=== PATIENT | female | born 1965 | race Caucasian/White ===

== ENCOUNTER 2017-06-12 20:28 | Emergency (ER) | payer MEDICAID ==
[~2017-06-12] VITALS: Ht 170.2 cm; Wt 100.2 kg
[~2017-06-12 20:28] MED LIST: ALBU25PO2 PO; ATEN-103 PO; FURO-92 PO; HYDR-3151 PO; HYDR-882 PO; HYDR1TAB14 PO; LORA2TAB99 PO; METH40TA3 PO; POTA10TA57 PO; TIOT18CA INH; [UNRECOGNIZED DRUG - CODE] PO
[2017-06-12] MEDS ORDERED: SODIUM CHLORIDE 0.9% 1,000ML IVBOLUS ONE (21:00)
[2017-06-12 21:40] LABS: HEMATOCRIT 40.8 % (34.6-47.8); HEMOGLOBIN 13.7 g/dL (11.7-16.4); WHITE BLOOD COUNT 9.9 x10^3/uL (3.4-10)
[2017-06-12 21:53] LABS: BLOOD UREA NITROGEN 18 mg/dL (7-18)
[2017-06-12] MEDS ORDERED: ONDANSETRON ODT 4 MG ONE (21:54)
[2017-06-12] MEDS ORDERED: OXYcodone/APAP 5/325MG TABLET ONE (21:54)
[2017-06-12 21:58] LABS: ASPARTATE AMINO TRANSFERASE 14 U/L (15-37); IS PT STATUS REG ER OR PRE ER? YES
[2017-06-12] MEDS ORDERED: ONDANSETRON ODT 4 MG PO ONE (22:00)
[2017-06-12] MEDS ORDERED: OXYcodone/APAP 5/325MG TABLET PO ONE (22:00)
[2017-06-12 22:07] LABS: PATH.CAST-FLAG NOT PRESENT; SPERM-FLAG NOT PRESENT; SRC-FLAG NOT PRESENT; XTAL-FLAG NOT PRESENT; YLC-FLAG NOT PRESENT
[2017-06-12 22:34] VITALS: BP 126/67
== END 2017-06-12 22:36 | disposition home or self-care (01) ==
LOC: ED 22:11
DX: N30.01 Acute cystitis with hematuria (principal); H10.33 Unspecified acute conjunctivitis, bilateral; R60.0 Localized edema; J20.8 Acute bronchitis due to other specified organisms; B34.9 Viral infection, unspecified; J44.9 Chronic obstructive pulmonary disease, unspecified; I50.9 Heart failure, unspecified; I11.0 Hypertensive heart disease with heart failure; I25.2 Old myocardial infarction; I25.10 Atherosclerotic heart disease of native coronary artery without angina pectoris; G89.29 Other chronic pain
CPT/HCPCS: 36415; 71010; 80053; 81001; 84484; 85025; 87086; 93005; 93971; 99285; Q0162

== ENCOUNTER 2017-09-23 12:46 | Emergency (ER) | payer MEDICAID ==
[~2017-09-23] VITALS: Ht 170.2 cm; Wt 98.5 kg
[2017-09-23] MEDS ORDERED: ONDANSETRON 2MG/ML, 2ML ONE (13:19)
[2017-09-23] MEDS ORDERED: methylPREDNISolone SOD SUCC 125 MG/2 ML ONE (13:19)
[2017-09-23] MEDS ORDERED: ONDANSETRON 2MG/ML, 2ML IVP ONE (13:30)
[2017-09-23] MEDS ORDERED: SODIUM CHLORIDE 0.9% 1,000ML IVBOLUS ONE (13:30)
[2017-09-23] MEDS ORDERED: ALBUTEROL SULFATE 2.5 MG/3 ML NPPB ONE ×2 (13:30→15:00)
[2017-09-23] MEDS ORDERED: methylPREDNISolone SOD SUCC 125 MG/2 ML IVP ONE (13:30)
[2017-09-23] MEDS ORDERED: SODIUM CHLORIDE FLUSH 10ML SYR IVF ONE (13:30)
[2017-09-23] MEDS ORDERED: ALBUTEROL/IPRATROPIUM 2.5MG/0.5MG, 3 ML NPPB ONE (13:30)
[2017-09-23] MEDS ORDERED: ALBUTEROL SULFATE 2.5MG/0.5ML ONE (13:42)
[2017-09-23] MEDS ORDERED: ALBUTEROL/IPRATROPIUM 2.5MG/0.5MG, 3 ML ONE (13:42)
[2017-09-23 13:44] LABS: RAPID INFLUENZA A Negative (Negative); RAPID INFLUENZA B Negative (Negative)
[2017-09-23] MEDS ORDERED: HYDROcodone/APAP 5/325 TABLET ONE (13:49)
[2017-09-23] MEDS ORDERED: HYDROcodone/APAP 5/325 TABLET PO ONE (14:00)
[2017-09-23 14:04] LABS: HEMATOCRIT 40.6 % (34.6-47.8); HEMOGLOBIN 13.8 g/dL (11.7-16.4); WHITE BLOOD COUNT 7.5 x10^3/uL (3.4-10)
[2017-09-23 14:15] LABS: ASPARTATE AMINO TRANSFERASE 15 U/L (15-37); BLOOD UREA NITROGEN 8 mg/dL (7-18)
[2017-09-23] MEDS ORDERED: ONDANSETRON ODT 4 MG ONE (14:39)
[2017-09-23 14:54] VITALS: BP 129/89
[2017-09-23] MEDS ORDERED: ONDANSETRON 4 MG TABLET PO ONE (15:00)
== END 2017-09-23 14:56 | disposition home or self-care (01) ==
LOC: ED 14:50
DX: J44.1 Chronic obstructive pulmonary disease with (acute) exacerbation (principal); J20.8 Acute bronchitis due to other specified organisms; B34.9 Viral infection, unspecified; I10 Essential (primary) hypertension; I25.10 Atherosclerotic heart disease of native coronary artery without angina pectoris; I25.2 Old myocardial infarction; M79.7 Fibromyalgia; Z90.49 Acquired absence of other specified parts of digestive tract; Z99.81 Dependence on supplemental oxygen
CPT/HCPCS: 36415; 71020; 80053; 85025; 85610; 85730; 87400; 93005; 94640; 99285; J7512; Q0162; J7613; J7620

== ENCOUNTER 2017-10-02 10:52 | Emergency (ER) | payer MEDICAID ==
[~2017-10-02] VITALS: Ht 170.2 cm; Wt 92.6 kg
[2017-10-02] MEDS ORDERED: SODIUM CHLORIDE 0.9% 1,000ML IVBOLUS ONE (12:00)
[2017-10-02] MEDS ORDERED: PROMETHAZINE 25 MG/ML, 1ML IM ONE (12:00)
[2017-10-02] MEDS ORDERED: FAMOTIDINE 20 MG/2 ML IVP ONE (12:00)
[2017-10-02] MEDS ORDERED: SODIUM CHLORIDE FLUSH 10ML SYR IVF ONE (12:00)
[2017-10-02 12:19] LABS: HEMATOCRIT 44.1 % (34.6-47.8); HEMOGLOBIN 14.7 g/dL (11.7-16.4); WHITE BLOOD COUNT 11.5 x10^3/uL (3.4-10)
[2017-10-02 12:34] LABS: ASPARTATE AMINO TRANSFERASE 20 U/L (15-37); BLOOD UREA NITROGEN 13 mg/dL (7-18)
[2017-10-02] MEDS ORDERED: MORPHINE SULFATE 4 MG/ML, 1ML ONE ×3 (12:34→14:36)
[2017-10-02] MEDS ORDERED: FAMOTIDINE 20 MG/2 ML ONE (12:34)
[2017-10-02] MEDS ORDERED: PROMETHAZINE 25 MG/ML, 1ML ONE (12:34)
[2017-10-02 12:37] LABS: IS PT STATUS REG ER OR PRE ER? YES
[2017-10-02] MEDS: MORPHINE SULFATE 4 MG/ML, 1ML IVPush PRN ×2 (12:38→13:16)
[2017-10-02 13:22] LABS: HCG UR LOT HCG706132
[2017-10-02 13:29] LABS: PATH.CAST-FLAG NOT PRESENT; SPERM-FLAG NOT PRESENT; SRC-FLAG NOT PRESENT; XTAL-FLAG NOT PRESENT; YLC-FLAG NOT PRESENT
[2017-10-02 13:35] LABS: HCG UR OBC PASS
[2017-10-02] MEDS ORDERED: ONDANSETRON 2MG/ML, 2ML IVPush ONE (14:30)
[2017-10-02] MEDS ORDERED: MORPHINE SULFATE 4 MG/ML, 1ML IVPush ONE (14:30)
[2017-10-02] MEDS ORDERED: ONDANSETRON 2MG/ML, 2ML ONE (14:36)
[2017-10-02 15:00] VITALS: BP 106/52
== END 2017-10-02 15:03 | disposition home or self-care (01) ==
LOC: ED 14:57
DX: R11.2 Nausea with vomiting, unspecified (principal); R51 Headache; I25.2 Old myocardial infarction; I11.0 Hypertensive heart disease with heart failure; I50.9 Heart failure, unspecified; F41.9 Anxiety disorder, unspecified; I25.10 Atherosclerotic heart disease of native coronary artery without angina pectoris; J44.9 Chronic obstructive pulmonary disease, unspecified; Z90.49 Acquired absence of other specified parts of digestive tract; Z86.718 Personal history of other venous thrombosis and embolism; Z91.041 Radiographic dye allergy status; Z91.013 Allergy to seafood; Z88.8 Allergy status to other drugs, medicaments and biological substances
CPT/HCPCS: 36415; 71010; 74176; 80053; 81001; 81025; 83690; 84484; 85025; 87086; 93005; 96361; 96372; 96374; 96375; 96376; 99285; J2405; J2550; J7030; S0028

== ENCOUNTER 2018-12-29 07:53 | Inpatient (IN) | payer MEDICAID, OTHER ==
[~2018-12-29] VITALS: Ht 170.2 cm; Wt 92.9 kg
[~2018-12-29 07:53] MED LIST changes: +HYDR-3653 PO; -HYDR-882 PO; +POTA25TA4 PO
--- NOTE | 2018-12-29 07:56 | NUR ---
Pt BIB [facility]-c/o midline CP radiating down L arm starting this morning. Pain described as sharp, 04/23. Pt positioned for comfort in bed with warm blankets, continuous oxygen, heart and BP monitors applied, all safety measures observed. Pt is in custody of [facility], deputy remains at bedside.
[2018-12-29] MEDS ORDERED: LORazepam 2 MG/ML, 1ML ONE (08:10)
--- NOTE | 2018-12-29 08:12 | NUR ---
Pt medicated per MAR, denies other needs.
[2018-12-29] MEDS ORDERED: LORazepam 2 MG/ML, 1ML IVPush ONE (08:30)
[2018-12-29] MEDS ORDERED: SODIUM CHLORIDE FLUSH 10ML SYR IVF ONE (08:30)
--- NOTE | 2018-12-29 08:38 | NUR ---
Pt requesting pain medication. Dr. Whittaker made aware.
--- NOTE | 2018-12-29 08:52 | NUR ---
Lab at bedside to collect blood.
[2018-12-29] MEDS ORDERED: MORPHINE SULFATE 4 MG/ML, 1ML ONE (08:56)
[2018-12-29] MEDS ORDERED: MORPHINE SULFATE 4 MG/ML, 1ML IVPush PRN (09:00)
--- NOTE | 2018-12-29 09:07 | NUR ---
Pt states pain 8/10, requesting pain medication. Discussed with Dr. Whittaker, orders received for Morphine IVP. Pt medicated per order, ambulatory to bathroom without difficulty accompanied by deputy.
[2018-12-29 09:20] LABS: BASOPHILS # (AUTO) 0.02 x10^3/uL (0-0.1); BASOPHILS % (AUTO) 0 % (0-1); EOSINOPHILS # (AUTO) 0.02 x10^3/uL (0-0.4); EOSINOPHILS % (AUTO) 0 % (1-7); LYMPHOCYTES # (AUTO) 1.77 x10^3/uL (1-3.4); LYMPHOCYTES % (AUTO) 23 % (22-44); MD NO; MEAN CORPUSCULAR HEMOGLOBIN 29.8 pg (27.0-34.8); MEAN CORPUSCULAR VOLUME 90.4 fL (80-100); MEAN PLATELET VOLUME 7.5 fL (7.4-10.4); MONOCYTES # (AUTO) 0.35 x10^3/uL (0.2-0.8); MONOCYTES % (AUTO) 5 % (2-9); NEUTROPHILS # (AUTO) 5.68 x10^3/uL (1.8-6.8); NEUTROPHILS % (AUTO) 73 % (42-75); PLATELET COUNT 278 x10^3/uL (130-400); RED BLOOD COUNT 4.85 x10^6/uL (3.82-5.3); RED CELL DISTRIBUTION WIDTH 13.1 % (9.6-15.2)
[2018-12-29 09:22] LABS: ALANINE AMINOTRANSFERASE 26 U/L (12-78); ALBUMIN 3.7 g/dL (3.4-5.0); ANION GAP 4 mmol/L (5-15); CALCIUM 9.1 mg/dL (8.5-10.1); CHLORIDE 110 mmol/L (98-107); CREATININE 0.69 mg/dL (0.55-1.02)
[2018-12-29 09:26] LABS: ALKALINE PHOSPHATASE 88 U/L (45-117); BILIRUBIN,TOTAL 0.4 mg/dL (0.2-1.0); TOTAL PROTEIN 7.3 g/dL (6.4-8.2); TROPONIN I < 0.015 ng/mL (0.000-0.045)
--- NOTE | 2018-12-29 09:30 | NUR ---
Pt resting in bed with eyes closed, resp even and unlabored, NADN.
--- NOTE | 2018-12-29 09:59 | NUR ---
Lab at bedside to collect blood cultures x2.
[2018-12-29] MEDS ORDERED: AZITHROMYCIN 500 MG in SODIUM CHLORIDE 0.9% 250 ML IVPB ONE (10:00)
[2018-12-29] MEDS ORDERED: SODIUM CHLORIDE FLUSH 10ML SYR IVF PRN (10:00)
[2018-12-29] MEDS ORDERED: CEFTRIAXONE PMX 1GM/50ML 50 ML IVPB ONE (10:00)
[2018-12-29] MEDS ORDERED: CEFTRIAXONE PMX 1GM/50ML 50 ML ONE (10:05)
--- NOTE | 2018-12-29 10:08 | NUR ---
IV abx initiated per order. Pt resting in bed, NADN, denies needs.
[2018-12-29] MEDS ORDERED: BISACODYL 10 MG SUPP PR PRN (11:00)
[2018-12-29] MEDS ORDERED: hydrALAzine 20 MG/ML, 1ML IVPush PRN (11:00)
[2018-12-29] MEDS ORDERED: POLYETHYLENE GLYCOL 17 GM PACKET PO PRN (11:00)
[2018-12-29] MEDS: CEFTRIAXONE PMX 1GM/50ML 50 ML IV SCH ×2 (11:00→23:09)
[2018-12-29] MEDS ORDERED: ACETAMINOPHEN 325 MG TABLET PO PRN (11:00)
[2018-12-29] MEDS ORDERED: ALBUTEROL PO SCH (11:00)
[2018-12-29] MEDS ORDERED: TEMAZEPAM 15 MG CAPSULE PO PRN (11:00)
[2018-12-29] MEDS ORDERED: NICOTINE 21 MG/24 HR PATCH.TD24 ONE (11:55)
[2018-12-29] MEDS ORDERED: HEPARIN 5,000 UNITS/ML, 1ML ONE (11:55)
[2018-12-29] MEDS ORDERED: methylPREDNISolone SOD SUCC 125 MG/2 ML ONE (11:56)
[2018-12-29] MEDS: methylPREDNISolone SOD SUCC 125 MG/2 ML IVPush SCH ×3 (12:02→23:09)
[2018-12-29] MEDS: NICOTINE 21 MG/24 HR PATCH.TD24 TD SCH (12:03)
[2018-12-29] MEDS: HEPARIN 5,000 UNITS/ML, 1ML SQ SCH ×2 (12:03→19:59)
[2018-12-29 12:23] LABS: THYROID STIMULATING HORMONE 0.454 mIU/L (0.358-3.740)
--- NOTE | 2018-12-29 12:30 | NUR ---
Pt resting in bed with eyes closed, resp even and unlabored, NADN.
--- NOTE | 2018-12-29 12:48 | NUR ---
Report called to Kamilla LUI on card tele. Floor ready for pt transport.
[2018-12-29] MEDS ORDERED: PROMETHAZINE 25 MG/ML, 1ML ONE (13:19)
[2018-12-29] MEDS ORDERED: PROMETHAZINE 25 MG/ML, 1ML IM PRN (13:30)
[2018-12-29] MEDS ORDERED: GUAIFENESIN/COD200MG-20MG/10ML LIQUID PO PRN (13:30)
[2018-12-29] MEDS ORDERED: ALBUTEROL SULFATE 2.5 MG/3 ML HHN PRN (14:00)
[2018-12-29 14:05] VITALS: BP 114/64
[2018-12-29 14:28] LABS: HEMOGLOBIN A1C 5.9 % (4.2-6.3)
[2018-12-29] MEDS: HYDROcodone/APAP 5/325 TABLET PO PRN ×2 (14:55→19:59)
[2018-12-29] MEDS: IPRATROPIUM 0.5 MG/2.5 ML INHA NPPB SCH ×2 (15:30→20:47)
[2018-12-29 16:14] LABS: TROPONIN I < 0.015 ng/mL (0.000-0.045)
[2018-12-29] MEDS ORDERED: RANI150T23 PO (17:20)
[2018-12-29] MEDS: FAMOTIDINE 20 MG TABLET PO SCH (19:59)
[2018-12-29 20:06] VITALS: BP 131/79
[2018-12-29 21:33] LABS: TROPONIN I < 0.015 ng/mL (0.000-0.045)
[2018-12-30] MEDS: HYDROcodone/APAP 5/325 TABLET PO PRN ×6 (02:22→21:44)
[2018-12-30] MEDS: HEPARIN 5,000 UNITS/ML, 1ML SQ SCH ×3 (02:22→21:45)
[2018-12-30 02:24] VITALS: BP 119/71
[2018-12-30] MEDS: IPRATROPIUM 0.5 MG/2.5 ML INHA NPPB SCH ×4 (03:53→20:25)
[2018-12-30] MEDS: methylPREDNISolone SOD SUCC 125 MG/2 ML IVPush SCH ×4 (05:25→22:58)
[2018-12-30] MEDS: PROMETHAZINE 25 MG/ML, 1ML IM PRN (06:15)
[2018-12-30 06:52] LABS: CHOL/HDL RATIO 6.2; LDL/HDL RATIO 4.7 (0.5-3.0)
[2018-12-30 07:11] VITALS: BP 111/87
[2018-12-30] MEDS: ASPIRIN 81 MG TABLET CHEW PO SCH (08:32)
[2018-12-30] MEDS: FAMOTIDINE 20 MG TABLET PO SCH ×2 (08:32→21:45)
[2018-12-30] MEDS: FUROSEMIDE 40 MG TABLET PO SCH (08:32)
[2018-12-30] MEDS: ATENOLOL 25 MG TABLET PO SCH (08:32)
[2018-12-30] MEDS: K-LYTE 25 MEQ TABLET.EFF PO SCH (08:33)
[2018-12-30] MEDS: METHADONE INTENSOL 10 MG/ML ORAL CONC PO SCH (08:54)
[2018-12-30] MEDS ORDERED: ASPIRIN PO SCH (09:00)
[2018-12-30] MEDS ORDERED: METHADONE 40 MG TABLET.SOL PO SCH ×2 (09:00)
[2018-12-30] MEDS ORDERED: REGADENOSON 0.4 MG/5 ML SYRINGE ONE (09:42)
[2018-12-30] MEDS: DOCUSATE 100 MG CAPSULE PO PRN ×2 (11:28→22:58)
[2018-12-30] MEDS: CEFTRIAXONE PMX 1GM/50ML 50 ML IV SCH ×2 (11:28→22:58)
[2018-12-30] MEDS: NICOTINE 21 MG/24 HR PATCH.TD24 TD SCH (11:28)
[2018-12-30 12:20] VITALS: BP 102/59
[2018-12-30 19:59] VITALS: BP 100/63
[2018-12-31 01:34] VITALS: BP 106/63
[2018-12-31] MEDS: IPRATROPIUM 0.5 MG/2.5 ML INHA NPPB SCH ×2 (03:53→07:15)
[2018-12-31] MEDS: HYDROcodone/APAP 5/325 TABLET PO PRN ×4 (04:25→16:25)
[2018-12-31] MEDS: methylPREDNISolone SOD SUCC 125 MG/2 ML IVPush SCH ×2 (05:24→11:59)
[2018-12-31] MEDS: HEPARIN 5,000 UNITS/ML, 1ML SQ SCH ×2 (05:25→13:30)
[2018-12-31 05:58] LABS: BASOPHILS # (AUTO) 0.03 x10^3/uL (0-0.1); BASOPHILS % (AUTO) 0 % (0-1); EOSINOPHILS % (AUTO) 0 % (1-7); LYMPHOCYTES # (AUTO) 1.29 x10^3/uL (1-3.4); LYMPHOCYTES % (AUTO) 9 % (22-44); MD NO; MEAN CORPUSCULAR HEMOGLOBIN 30.3 pg (27.0-34.8); MEAN CORPUSCULAR HGB CONC 33.4 g/dL (32.4-35.8); MEAN CORPUSCULAR VOLUME 90.9 fL (80-100); MONOCYTES # (AUTO) 0.33 x10^3/uL (0.2-0.8); MONOCYTES % (AUTO) 2 % (2-9); NEUTROPHILS # (AUTO) 13.43 x10^3/uL (1.8-6.8); NEUTROPHILS % (AUTO) 89 % (42-75); PLATELET COUNT 245 x10^3/uL (130-400); RED BLOOD COUNT 4.54 x10^6/uL (3.82-5.3); RED CELL DISTRIBUTION WIDTH 13.6 % (9.6-15.2)
[2018-12-31 06:07] LABS: ANION GAP 8 mmol/L (5-15); CHLORIDE 108 mmol/L (98-107); CREATININE 0.94 mg/dL (0.55-1.02)
[2018-12-31 06:52] VITALS: BP 130/74
[2018-12-31] MEDS ORDERED: ALBUTEROL/IPRATROPIUM 2.5MG/0.5MG, 3 ML ONE (07:11)
[2018-12-31] MEDS: ATENOLOL 25 MG TABLET PO SCH (08:20)
[2018-12-31] MEDS: ASPIRIN 81 MG TABLET CHEW PO SCH (08:20)
[2018-12-31] MEDS: FAMOTIDINE 20 MG TABLET PO SCH (08:20)
[2018-12-31] MEDS: FUROSEMIDE 40 MG TABLET PO SCH (08:20)
[2018-12-31] MEDS: METHADONE INTENSOL 10 MG/ML ORAL CONC PO SCH (08:45)
[2018-12-31] MEDS: DOCUSATE 100 MG CAPSULE PO PRN (08:53)
[2018-12-31] MEDS: PROMETHAZINE 25 MG/ML, 1ML IM PRN (08:56)
[2018-12-31] MEDS: NICOTINE 21 MG/24 HR PATCH.TD24 TD SCH (11:00)
[2018-12-31] MEDS: K-LYTE 25 MEQ TABLET.EFF PO SCH (11:52)
[2018-12-31] MEDS: CEFTRIAXONE PMX 1GM/50ML 50 ML IV SCH (11:53)
[2018-12-31 12:48] VITALS: BP 105/68
[2018-12-31] MEDS ORDERED: AMOX1TAB64 PO (14:08)
[2018-12-31] MEDS ORDERED: METH4TAB2 PO (14:08)
== END 2018-12-31 17:16 | DRG 190 ==
LOC: ED 09:23 → EDIP 10:08 → 5SO 13:15 → 3NE 12-30 17:57
PROVIDERS: ADMIT Internal Medicine; ATTEND Internal Medicine
DX: J44.1 Chronic obstructive pulmonary disease with (acute) exacerbation (principal); J15.9 Unspecified bacterial pneumonia; I25.110 Atherosclerotic heart disease of native coronary artery with unstable angina pectoris; J44.0 Chronic obstructive pulmonary disease with (acute) lower respiratory infection; F17.200 Nicotine dependence, unspecified, uncomplicated; F41.1 Generalized anxiety disorder; G50.0 Trigeminal neuralgia; G89.29 Other chronic pain; I11.0 Hypertensive heart disease with heart failure; I25.2 Old myocardial infarction; I50.9 Heart failure, unspecified; Z88.7 Allergy status to serum and vaccine; Z88.8 Allergy status to other drugs, medicaments and biological substances; Z88.3 Allergy status to other anti-infective agents; Z91.013 Allergy to seafood; M79.7 Fibromyalgia; Z86.718 Personal history of other venous thrombosis and embolism; Z87.11 Personal history of peptic ulcer disease; Z95.5 Presence of coronary angioplasty implant and graft
CPT/HCPCS: 36415; 99285; J7613; J7644; 71045; 78452; 80048; 80053; 80061; 83036; 83605; 83735; 84100; 84439; 84443; 84484; 85025; 87040; 93005; 93017; 93306; 93970; 94640; 96365; 96375; G0378; J0456; J0696; J1644; J2550; J2785; A9502; C9898; J2060; J2930; J7050

== ENCOUNTER 2019-01-04 16:14 | Emergency (ER) | payer MEDICAID, OTHER ==
[~2019-01-04] VITALS: Ht 170.2 cm; Wt 92.0 kg
[~2019-01-04 16:14] MED LIST changes: +AMOX1TAB64 PO; +METH4TAB2 PO; +RANI150T23 PO
[2019-01-04 16:19] VITALS: BP 118/76
[2019-01-04] MEDS ORDERED: ONDANSETRON ODT 4 MG ONE (16:23)
[2019-01-04] MEDS ORDERED: ONDANSETRON ODT 4 MG PO ONE (16:30)
[2019-01-04] MEDS ORDERED: SODIUM CHLORIDE FLUSH 10ML SYR IVF ONE (16:30)
[2019-01-04] MEDS ORDERED: ALBUTEROL/IPRATROPIUM 2.5MG/0.5MG, 3 ML NPPB ONE (16:30)
[2019-01-04] MEDS ORDERED: PLEASE ENTER HEIGHT AND WEIGHT MC SCH (16:30)
[2019-01-04 17:06] LABS: ALANINE AMINOTRANSFERASE 88 U/L (12-78); ALBUMIN 3.9 g/dL (3.4-5.0); ANION GAP 7 mmol/L (5-15); CALCIUM 8.6 mg/dL (8.5-10.1); CHLORIDE 105 mmol/L (98-107); CREATININE 1.03 mg/dL (0.55-1.02)
[2019-01-04 17:11] LABS: ALKALINE PHOSPHATASE 75 U/L (45-117); BILIRUBIN,TOTAL 0.5 mg/dL (0.2-1.0); TOTAL PROTEIN 7.1 g/dL (6.4-8.2); TROPONIN I < 0.015 ng/mL (0.000-0.045)
[2019-01-04 17:38] LABS: MEAN CORPUSCULAR HEMOGLOBIN 30.1 pg (27.0-34.8); MEAN CORPUSCULAR HGB CONC 33.2 g/dL (32.4-35.8); MEAN CORPUSCULAR VOLUME 90.8 fL (80-100); MEAN PLATELET VOLUME 8.1 fL (7.4-10.4); PLATELET COUNT 279 x10^3/uL (130-400); RED BLOOD COUNT 5.27 x10^6/uL (3.82-5.3); RED CELL DISTRIBUTION WIDTH 13.4 % (9.6-15.2)
--- NOTE | 2019-01-04 18:13 | NUR ---
PT TO ROOM FROM LOBBY VIA WHEELCHAIR
[2019-01-04] MEDS ORDERED: ALBUTEROL/IPRATROPIUM 2.5MG/0.5MG, 3 ML ONE (18:29)
[2019-01-04 19:06] LABS: BASOPHILS # (AUTO) 0.05 x10^3/uL (0-0.1); BASOPHILS % (AUTO) 0 % (0-1); EOSINOPHILS # (AUTO) 0.28 x10^3/uL (0-0.4); EOSINOPHILS % (AUTO) 2 % (1-7); LYMPHOCYTES # (AUTO) 6.49 x10^3/uL (1-3.4); LYMPHOCYTES % (AUTO) 37 % (22-44); MD SCAN; MONOCYTES # (AUTO) 0.98 x10^3/uL (0.2-0.8); MONOCYTES % (AUTO) 6 % (2-9); NEUTROPHILS # (AUTO) 9.75 x10^3/uL (1.8-6.8); NEUTROPHILS % (AUTO) 56 % (42-75)
--- NOTE | 2019-01-04 19:17 | NUR ---
received report from hamlet larose rn. pt seen by dr. ruiz. pt to get IV, meds, labs and cta.
[2019-01-04] MEDS ORDERED: KETOROLAC 30 MG/1 ML ONE (19:19)
[2019-01-04] MEDS ORDERED: DIPHENHYDRAMINE 50 MG/ML, 1ML ONE (19:19)
[2019-01-04] MEDS ORDERED: methylPREDNISolone SOD SUCC 125 MG/2 ML ONE (19:19)
[2019-01-04] MEDS ORDERED: PROMETHAZINE 25 MG/ML, 1ML ONE (19:19)
[2019-01-04] MEDS ORDERED: PROMETHAZINE 25 MG/ML, 1ML IM ONE (19:30)
[2019-01-04] MEDS ORDERED: methylPREDNISolone SOD SUCC 125 MG/2 ML IVPush SCH (19:30)
[2019-01-04] MEDS ORDERED: DIPHENHYDRAMINE 50 MG/ML, 1ML IVPush ONE (19:30)
[2019-01-04] MEDS ORDERED: KETOROLAC 30 MG/1 ML IVPush ONE (19:30)
--- NOTE | 2019-01-04 19:37 | NUR ---
DR. ROSARIO AT BEDSIDE. PT MEDICATED ORDERED. PT BEGAN TO BECOME IRATE AFTER PHENERGAN SHOT STATING "I'M NOT GETTING NOTHING FOR MY PAIN AND I HAVE BEEN HERE FOR FOUR HOURS. I WANT TO GO." DR. ROSARIO WAS MADE AWARE.
--- NOTE | 2019-01-04 19:55 | NUR ---
PT TO GET MORPHINE PRIOR TO CT. PT REFUSING CT UNTIL SHE GETS PAIN MED. WAITING FOR ORDER FROM FROM DR. ROSARIO FOR PAIN MED.
[2019-01-04] MEDS ORDERED: MORPHINE SULFATE 4 MG/ML, 1ML ONE (19:57)
[2019-01-04] MEDS ORDERED: MORPHINE SULFATE 4 MG/ML, 1ML IVPush PRN (20:00)
--- NOTE | 2019-01-04 20:00 | NUR ---
PT MEDICATED FOR PAIN. PT TO CT.
[2019-01-04 20:14] LABS: INTERNATIONAL NORMALIZED RATIO 0.96 (0.93-1.1); PROTHROMBIN TIME 10.1 Seconds (9.6-11.5)
--- NOTE | 2019-01-04 20:21 | NUR ---
PT DEMANDING MORE PAIN MEDS PRIOR TO US. DR. ROSARIO AWARE.
--- NOTE | 2019-01-04 20:49 | NUR ---
PT UP TO NURSE'S STATION ASKING HER PAIN TO BE ADDRESSED. PT TOLD DR. ROSARIO TO SEE HER SHORTLY AND PT WALKED BACK TO HER ROOM. PT REMOVED HER GOWN AND BACK IN HER CLOTHES. DR. ROSARIO IS NOW AT HER BEDSIDE.
[2019-01-04] MEDS ORDERED: OXYcodone/APAP 5/325MG TABLET ONE (20:54)
[2019-01-04] MEDS ORDERED: OXYcodone/APAP 5/325MG TABLET PO ONE (21:00)
[2019-01-05] MEDS ORDERED: OMNIPAQUE 350 MG/ML, 100ML BOTTLE ONE (00:23)
== END 2019-01-04 21:05 | disposition home or self-care (01) ==
LOC: ED 18:46
DX: R07.1 Chest pain on breathing (principal); R09.1 Pleurisy; R50.9 Fever, unspecified; I11.0 Hypertensive heart disease with heart failure; I50.9 Heart failure, unspecified; I25.2 Old myocardial infarction; J44.9 Chronic obstructive pulmonary disease, unspecified; F41.1 Generalized anxiety disorder; I25.10 Atherosclerotic heart disease of native coronary artery without angina pectoris; Z86.718 Personal history of other venous thrombosis and embolism
CPT/HCPCS: 36415; 71045; 71275; 80053; 83880; 84484; 85025; 85610; 85730; 93005; 94640; 96372; 96374; 96375; 99284; J1200; J1885; J2550; J2930; J7620; Q0162; Q9967

== ENCOUNTER 2019-03-03 11:59 | Emergency (ER) | payer MEDICAID ==
[~2019-03-03] VITALS: Ht 170.2 cm; Wt 91.9 kg
[2019-03-03 12:19] VITALS: BP 134/55
[2019-03-03] MEDS ORDERED: SODIUM CHLORIDE FLUSH 10ML SYR IVF ONE (12:30)
--- NOTE | 2019-03-03 12:30 | NUR ---
PT NOT IN LOBBY WHEN RADIOLOGIST CALLED FOR X RAY
--- NOTE | 2019-03-03 12:45 | NUR ---
PT NOT IN LOBBY WHEN RADIOLOGIST CALLED FOR X RAY X 2
--- NOTE | 2019-03-03 13:15 | NUR ---
PT BECAME ANGRY OVER WAIT TIME AND STATED "FUCK THIS SHIT I'M LEAVING" AND THEN WALKED OUT THE DOOR.
== END 2019-03-03 13:18 | disposition left against medical advice (07) ==
LOC: ED 13:12
DX: K56.699 Other intestinal obstruction unspecified as to partial versus complete obstruction (principal)
CPT/HCPCS: 99281

== ENCOUNTER 2020-02-22 14:27 | Emergency (ER) | payer MEDICAID ==
[~2020-02-22] VITALS: Ht 170.2 cm; Wt 95.0 kg
[~2020-02-22 14:27] MED LIST changes: -HYDR1TAB14 PO; +HYDR1TAB15 PO; +RANI-467 PO; -RANI150T23 PO
[2020-02-22] MEDS ORDERED: LORazepam 2 MG/ML, 1ML ONE ×2 (14:43→15:33)
[2020-02-22] MEDS ORDERED: LORazepam 2 MG/ML, 1ML IM ONE ×2 (15:00→15:30)
[2020-02-22] MEDS ORDERED: MAALOX/HYOSCYAMINE/LIDOCAINE 45 ML BTL PO ONE (15:00)
--- NOTE | 2020-02-22 15:04 | NUR ---
PT INCREASED ANXIETY. PT YELLING OUT THAT SHE CAN'T BREATHE AND TO HELP GET THE PILL OUT OF HER THROAT. PT SITTING ON BED ROCKING BACK AT FORTH, YELLING HELP ME, HELP ME, ALL WHILE I AM STANDING BESIDE HER EXPLAING WHAT THE PLAN IS FOR CONSULTING GI MD. ESME ADMIN PER DEC. PT IS MAKING HERSELF THROW UP.
[2020-02-22] MEDS ORDERED: ALUMINUM/MAG/SIMETHICONE 30 ML UDC ONE (15:17)
--- NOTE | 2020-02-22 15:25 | NUR ---
PT TAKING SIPS OF WATER AND MAALOX WITHOUT THROWING ANYTHING UP. PT CONTINUES TO YELL FOR HELP THAT SHE'S DYING PERIODICALLY. PT REASSURED SHE IS NOT DYING. BREATHING IS NOT OCCLUDED.
[2020-02-22] MEDS ORDERED: ALUMINUM/MAG/SIMETHICONE 30 ML UDC PO PRN (15:30)
[2020-02-22] MEDS ORDERED: PROPOFOL 10 MG/ML, 20ML IVPush ONE (16:00)
[2020-02-22] MEDS ORDERED: KETAMINE 100 MG/ML, 5ML IV ONE (16:00)
[2020-02-22] MEDS ORDERED: KETAMINE 10 MG/ML, 20ML ONE (16:03)
[2020-02-22] MEDS ORDERED: PROPOFOL 10 MG/ML, 20ML ONE (16:03)
--- NOTE | 2020-02-22 16:19 | NUR ---
TASK RN: PER GI AND ED MD PATIENT CONDITION DOES NOT REQUIRE ENDOSCOPE AND PROCEDURAL SEDATION AT THIS TIME, PATIENT TO DRINK PO FLUIDS AND HAVE ESOPHAGRAM DONE. PROPOFOL AND KETAMINE RETURNED TO OMNICELL.
--- NOTE | 2020-02-22 16:44 | NUR ---
PT TAKEN TO ESOPHAGRAM
[2020-02-22 17:12] VITALS: BP 122/61
--- NOTE | 2020-02-22 17:31 | NUR ---
ALL RESULTS ARE BACK AT THIS TIME. CHART UP FOR RECHECK.
--- NOTE | 2020-02-22 18:02 | NUR ---
Patient given discharge instructions and they have confirmed that they understand the instructions. Patient ambulatory with steady gait. Patient states she is comfortable waiting in the lobby for her to arrive for safe discharge and transportation.
== END 2020-02-22 18:05 | disposition home or self-care (01) ==
LOC: ED 16:13
DX: K21.0 Gastro-esophageal reflux disease with esophagitis (principal); I11.0 Hypertensive heart disease with heart failure; I50.9 Heart failure, unspecified; F41.1 Generalized anxiety disorder; J44.9 Chronic obstructive pulmonary disease, unspecified; F17.200 Nicotine dependence, unspecified, uncomplicated; R06.02 Shortness of breath
CPT/HCPCS: 71045; 74220; 96372; 99284; J2060

== ENCOUNTER 2020-02-24 13:46 | Emergency (ER) | payer MEDICAID ==
[~2020-02-24] VITALS: Ht 170.2 cm; Wt 92.1 kg
[2020-02-24] MEDS ORDERED: METH40TA3 PO (14:25)
--- NOTE | 2020-02-24 14:38 | NUR ---
PT SITTING IN BED, NO SIGNS OF DISTRESS. ERP HAS BEEN TO BEDSIDE. WILL CONITINUE TO MONITOR AND WATCH FOR ORDERS.
[2020-02-24] MEDS ORDERED: D5%-0.45% NACL 500 ML IV ONE (14:58)
[2020-02-24] MEDS ORDERED: LORazepam 2 MG/ML, 1ML IVPush ONE (15:00)
[2020-02-24] MEDS ORDERED: LORazepam 2 MG/ML, 1ML ONE (15:08)
--- NOTE | 2020-02-24 15:30 | NUR ---
1MG OF 2 OF ATIVAN ADMINISTERED. ERP AWARE, OKAY. PT SLEEPING, STATING ABOVE 90 BEFORE NURSE LEFT THE ROOM.
--- NOTE | 2020-02-24 15:33 | NUR ---
PT SITTING IN BED, EYE CLOSED, RESPIRATIONS EVEN AND UNLABORED. LIGHTS OFF TO PROMOTE REST.
--- NOTE | 2020-02-24 16:04 | NUR ---
PT EASILY AROUSED TO TOUCH, PROVIDED ORANGE JUICE AND APPLE SAUCE, PT CONSUMED WITHOUT PROBLEMS.
[2020-02-24 16:26] VITALS: BP 117/50
--- NOTE | 2020-02-24 17:14 | NUR ---
PT DISCONNECTED SELF FROM MONITORS, DRESSED SELF. PT MAKING STATEMENTS THAT SHE ONLY WANTS TO SPEAK TO A DOCTOR, "YOU'RE A NURSE, YOU CAN'T MAKE ANY DECISIONS." PT STATES UNABLE TO SWOLLOW PILLS AND NEEDS DISCHARGE INSTRUCTIONS CHANGED. WHILE WAITING FOR D/C INSTRUCTIONS TO BE CHANGED, PT MAKING STATEMENTS THAT SHE NEEDS MORE MEDICINE, NOT SATISFIED WITH PERSCRIPTION MEDS THAT SHE WILL BE D/C'D WITH. THIS RN CONVERSED WITH PRECEPTING RN ABOUT HOW TO HANDLE SITUATION. PT CAME OUT OF ROOM AND BEGAN YELLING AT THIS RN AND PRECEPTING RN THAT THEY WERE TALKING ABOUT HER. SECURITY CALLED. D/C PERSCRIPTIONS CHANGED TO LIQUID. PT WALKED WITH RN AND SECURITY TO D/C AFTER SPEAKING WITH MD AGAIN ABOUT MEDICATIONS.
--- NOTE | 2020-02-24 17:20 | NUR ---
ASSIST RN:: PT STANDING IN DOORWAY DEMANDING TO SPEAK WITH A DOCTOR, PT UPSET ABOUT HER DC PRESCRIPTIONS. THIS RN WENT WITH PRIMARY RN TO SPEAK WITH PT, INFORMED HER THAT THE DOCTOR HAS TO REWRITE THE RX AND PT NEEDS TO WAIT UNTIL THE ERP HAS WRITTEN THEM. PT STATED, "I WANT TO TALK TO A DOCTOR, NOT YOU, YOU'RE NOBODY, JUST AN RN. YOU CAN'T GIVE DOCTOR ADVISE". THIS RN INFORMED PT, THAT DOCTOR ADVISE WAS NOT BEING GIVEN, BUT THAT THE ERP IS WORKING ON CHANGING THE RX AND PT NEEDS TO WAIT. PT CONTINUED TO YELL AND CUSS AT THIS RN. ASKED PT TO NOT YELL IT'S DISRUPTIVE TO NEAR BY PTS. PT CONTINUED TO YELL. OFFERED PT TO WAIT IN LOBBY, PT REFUSED. INFORMED PT SECURITY WILL BE CALLED IF YELLING CONTINUES. PT STATED, "YOU CAN'T CALL SECURITY, I NEED MY MEDS". THIS RN CALLED SECURITY TO ASSIST PT TO DC.
== END 2020-02-24 17:25 | disposition home or self-care (01) ==
LOC: ED 14:47
DX: F41.1 Generalized anxiety disorder (principal); I11.0 Hypertensive heart disease with heart failure; I50.9 Heart failure, unspecified; F17.210 Nicotine dependence, cigarettes, uncomplicated; J44.9 Chronic obstructive pulmonary disease, unspecified; K21.0 Gastro-esophageal reflux disease with esophagitis; G89.29 Other chronic pain; Z86.718 Personal history of other venous thrombosis and embolism; Z90.49 Acquired absence of other specified parts of digestive tract; I25.2 Old myocardial infarction
CPT/HCPCS: 82962; 96374; 99283; J2060

== ENCOUNTER 2020-03-01 14:04 | Emergency (ER) | payer MEDICAID ==
[~2020-03-01] VITALS: Ht 170.2 cm; Wt 92.4 kg
[2020-03-01 14:06] VITALS: BP 115/67
[2020-03-01] MEDS ORDERED: LORazepam 1MG TABLET ONE (14:52)
[2020-03-01] MEDS ORDERED: LORazepam 1MG TABLET PO ONE (15:00)
[2020-03-01 15:22] LABS: BASOPHILS # (AUTO) 0.05 x10^3/uL (0-0.1); BASOPHILS % (AUTO) 1 % (0-1); EOSINOPHILS # (AUTO) 0.05 x10^3/uL (0-0.4); EOSINOPHILS % (AUTO) 1 % (1-7); LYMPHOCYTES # (AUTO) 2.43 x10^3/uL (1-3.4); LYMPHOCYTES % (AUTO) 35 % (22-44); MD NO; MEAN CORPUSCULAR HEMOGLOBIN 30.6 pg (27.0-34.8); MEAN CORPUSCULAR HGB CONC 33.2 g/dL (32.4-35.8); MEAN CORPUSCULAR VOLUME 92.4 fL (80-100); MEAN PLATELET VOLUME 7.4 fL (7.4-10.4); MONOCYTES # (AUTO) 0.46 x10^3/uL (0.2-0.8); MONOCYTES % (AUTO) 7 % (2-9); NEUTROPHILS % (AUTO) 57 % (42-75); PLATELET COUNT 311 x10^3/uL (130-400); RED BLOOD COUNT 4.37 x10^6/uL (3.82-5.3); RED CELL DISTRIBUTION WIDTH 13.1 % (9.6-15.2)
[2020-03-01 15:25] LABS: ALBUMIN 3.9 g/dL (3.4-5.0); ANION GAP 5 mmol/L (5-15); CALCIUM 9.1 mg/dL (8.5-10.1); CHLORIDE 104 mmol/L (98-107); CREATININE 0.82 mg/dL (0.55-1.02)
[2020-03-01] MEDS ORDERED: ACETAMINOPHEN 325 MG TABLET ONE (15:46)
[2020-03-01] MEDS ORDERED: ONDANSETRON ODT 4 MG ONE (15:46)
--- NOTE | 2020-03-01 16:06 | NUR ---
PT AMBULATED TO RESTROOM WITH NO ASSISTANCE NECESSARY. REQUESTING SOMETHING FOR NAUSEA AND HEADACHE. ERP NOTIFIED. RETURNED TO ROOM WITHOUT ISSUE. PT VERBALIZES A REDUCTION IN HER ANXIETY LEVEL WITH ATIVAN. DENIES ANY FURTHER NEEDS OR CONCERNS, CALL LIGHT IN REACH.
[2020-03-01] MEDS ORDERED: ACETAMINOPHEN 325 MG TABLET PO ONE (17:00)
[2020-03-01] MEDS ORDERED: ONDANSETRON ODT 4 MG PO ONE (17:00)
== END 2020-03-01 17:19 | disposition home or self-care (01) ==
LOC: ED 17:16
DX: F41.1 Generalized anxiety disorder (principal); I11.0 Hypertensive heart disease with heart failure; I50.9 Heart failure, unspecified; J44.9 Chronic obstructive pulmonary disease, unspecified; I25.2 Old myocardial infarction; F17.200 Nicotine dependence, unspecified, uncomplicated; I25.10 Atherosclerotic heart disease of native coronary artery without angina pectoris; R94.31 Abnormal electrocardiogram [ECG] [EKG]; Z86.718 Personal history of other venous thrombosis and embolism; Z90.49 Acquired absence of other specified parts of digestive tract
CPT/HCPCS: 36415; 80048; 82040; 85025; 93005; 99284

== ENCOUNTER 2020-03-06 12:45 | Emergency (ER) | payer MEDICAID ==
[~2020-03-06] VITALS: Ht 170.2 cm; Wt 90.1 kg
[2020-03-06 12:49] VITALS: BP 128/86
[2020-03-06] MEDS ORDERED: LORazepam 1MG TABLET PO ONE (13:30)
[2020-03-06] MEDS ORDERED: LORazepam 1MG TABLET ONE (13:33)
--- NOTE | 2020-03-06 13:39 | NUR ---
PT IS ANXIOUS AND TEARFUL. MEDICATED PER MAR. PT ALSO PROVIDER HER PCPs NAME AND INFORMATION. DENIES ANY FURTHER NEEDS OR CONCERNS, CALL LIGHT IN REACH.
[2020-03-06 13:56] LABS: ANION GAP 6 mmol/L (5-15); CALCIUM 9.7 mg/dL (8.5-10.1); CHLORIDE 104 mmol/L (98-107); CREATININE 0.84 mg/dL (0.55-1.02)
[2020-03-06] MEDS ORDERED: SERTRALINE 50MG TABLET PO ONE (15:00)
[2020-03-06] MEDS ORDERED: SERTRALINE 50MG TABLET ONE (15:07)
== END 2020-03-06 15:37 | disposition home or self-care (01) ==
LOC: ED 13:08
DX: F43.22 Adjustment disorder with anxiety (principal); F41.1 Generalized anxiety disorder; I25.10 Atherosclerotic heart disease of native coronary artery without angina pectoris; J44.9 Chronic obstructive pulmonary disease, unspecified; I25.2 Old myocardial infarction; I10 Essential (primary) hypertension; K20.9 Esophagitis, unspecified; M94.0 Chondrocostal junction syndrome [Tietze]; F17.200 Nicotine dependence, unspecified, uncomplicated; Z86.718 Personal history of other venous thrombosis and embolism; Z90.49 Acquired absence of other specified parts of digestive tract
CPT/HCPCS: 36415; 80048; 84443; 99283

== ENCOUNTER 2020-03-26 13:17 | Emergency (ER) | payer MEDICAID ==
[~2020-03-26] VITALS: Ht 170.2 cm; Wt 91.0 kg
[2020-03-26 13:45] VITALS: BP 133/61
[2020-03-26 14:24] LABS: BASOPHILS # (AUTO) 0.03 x10^3/uL (0-0.1); BASOPHILS % (AUTO) 0 % (0-1); EOSINOPHILS # (AUTO) 0.13 x10^3/uL (0-0.4); EOSINOPHILS % (AUTO) 2 % (1-7); LYMPHOCYTES # (AUTO) 2.67 x10^3/uL (1-3.4); LYMPHOCYTES % (AUTO) 33 % (22-44); MD NO; MEAN CORPUSCULAR HEMOGLOBIN 30.5 pg (27.0-34.8); MEAN CORPUSCULAR HGB CONC 32.9 g/dL (32.4-35.8); MEAN CORPUSCULAR VOLUME 92.7 fL (80-100); MEAN PLATELET VOLUME 7.6 fL (7.4-10.4); MONOCYTES # (AUTO) 0.51 x10^3/uL (0.2-0.8); MONOCYTES % (AUTO) 6 % (2-9); NEUTROPHILS # (AUTO) 4.86 x10^3/uL (1.8-6.8); NEUTROPHILS % (AUTO) 59 % (42-75); PLATELET COUNT 327 x10^3/uL (130-400); RED BLOOD COUNT 4.45 x10^6/uL (3.82-5.3); RED CELL DISTRIBUTION WIDTH 13.2 % (9.6-15.2)
[2020-03-26 14:31] LABS: ALBUMIN 3.8 g/dL (3.4-5.0); ANION GAP 4 mmol/L (5-15); CALCIUM 9.1 mg/dL (8.5-10.1); CHLORIDE 103 mmol/L (98-107); CREATININE 0.85 mg/dL (0.55-1.02)
--- NOTE | 2020-03-26 15:09 | NUR ---
PT TO ROOM AT THIS TIME.
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
--- NOTE | 2020-03-26 16:03 | NUR ---
Pt frustrated that a doctor has not seen her, requesting a health information administrator. Pt was pitted in triage and all results are normal at this time.
--- NOTE | 2020-03-26 16:37 | NUR ---
Pt eloped from ED.
== END 2020-03-26 16:38 | disposition left against medical advice (07) ==
LOC: ED 15:07
DX: S83.411A Sprain of medial collateral ligament of right knee, initial encounter (principal); S73.111A Iliofemoral ligament sprain of right hip, initial encounter; S83.511A Sprain of anterior cruciate ligament of right knee, initial encounter; S93.621A Sprain of tarsometatarsal ligament of right foot, initial encounter; I44.4 Left anterior fascicular block; J44.9 Chronic obstructive pulmonary disease, unspecified; I25.2 Old myocardial infarction; I11.0 Hypertensive heart disease with heart failure; I50.9 Heart failure, unspecified; G89.29 Other chronic pain; Z90.49 Acquired absence of other specified parts of digestive tract; Z86.718 Personal history of other venous thrombosis and embolism; F17.200 Nicotine dependence, unspecified, uncomplicated; W01.0XXA Fall on same level from slipping, tripping and stumbling without subsequent striking against object, initial encounter; Y93.89 Activity, other specified; Y92.488 Other paved roadways as the place of occurrence of the external cause; Y99.8 Other external cause status
CPT/HCPCS: 36415; 80048; 82040; 85025; 93005; 99285

== ENCOUNTER 2020-04-15 13:13 | Emergency (ER) | payer MEDICAID ==
[~2020-04-15] VITALS: Ht 170.2 cm; Wt 88.4 kg
[2020-04-15 13:16] VITALS: BP 119/58
[2020-04-15] MEDS ORDERED: LORazepam 1MG TABLET ONE (13:50)
[2020-04-15] MEDS ORDERED: LORazepam 1MG TABLET PO ONE (14:00)
== END 2020-04-15 14:22 | disposition home or self-care (01) ==
LOC: ED 13:45
DX: F41.1 Generalized anxiety disorder (principal); R00.2 Palpitations; R06.00 Dyspnea, unspecified; R00.0 Tachycardia, unspecified; I25.10 Atherosclerotic heart disease of native coronary artery without angina pectoris; I11.0 Hypertensive heart disease with heart failure; I50.9 Heart failure, unspecified; J44.9 Chronic obstructive pulmonary disease, unspecified; I21.9 Acute myocardial infarction, unspecified; I25.2 Old myocardial infarction; Z88.8 Allergy status to other drugs, medicaments and biological substances; Z90.49 Acquired absence of other specified parts of digestive tract; Z86.718 Personal history of other venous thrombosis and embolism; Z79.899 Other long term (current) drug therapy
CPT/HCPCS: 93005; 99283

== ENCOUNTER 2020-04-16 09:09 | Emergency (ER) | payer MEDICAID ==
[~2020-04-16] VITALS: Ht 170.2 cm; Wt 88.0 kg
--- NOTE | 2020-04-16 09:18 | NUR ---
Pt to room from triage, ambulatory with steady gait.
[2020-04-16] MEDS ORDERED: LORazepam 1MG TABLET ONE ×2 (09:40→10:48)
--- NOTE | 2020-04-16 09:42 | NUR ---
Pt medicated per MAR for anxiety, denies other needs.
[2020-04-16] MEDS ORDERED: LORazepam 1MG TABLET PO ONE ×2 (10:00→11:00)
--- NOTE | 2020-04-16 10:34 | NUR ---
Pt states she is feeling a little better but still anxious after medications. Pt denies other needs.
[2020-04-16 10:53] VITALS: BP 126/57
--- NOTE | 2020-04-16 10:54 | NUR ---
TASK RN. PT MEDICATED PER MD ORDER/PT REQUEST NOTED IN EMAR FOR ANXIETY. DENIES ANY OTHER NEEDS AT THIS TIME. VSS. CALL LIGHT IN REACH. TOLERATING PO WELL. PT RESTING COMFORTABLY ON ED GURNEY IN POSITION OF COMFORT. DENIES NEED TO USE RESTROOM. REPORT AND CARE BACK TO PRIMARY HU MEDINA AT THIS TIME.
--- NOTE | 2020-04-16 11:29 | NUR ---
Pt states anxiety improved after second dose Ativan. Pt denies other needs.
== END 2020-04-16 11:51 | disposition home or self-care (01) ==
LOC: ED 09:39
DX: F41.1 Generalized anxiety disorder (principal); R06.4 Hyperventilation; J44.9 Chronic obstructive pulmonary disease, unspecified; I25.2 Old myocardial infarction; I50.9 Heart failure, unspecified; I44.4 Left anterior fascicular block; Z86.718 Personal history of other venous thrombosis and embolism; Z90.49 Acquired absence of other specified parts of digestive tract
CPT/HCPCS: 93005; 99283

== ENCOUNTER 2020-04-18 14:58 | Emergency (ER) | payer MEDICAID ==
[~2020-04-18] VITALS: Ht 170.2 cm; Wt 88.0 kg
[2020-04-18] MEDS ORDERED: SODIUM CHLORIDE FLUSH 10ML SYR IVF ONE (15:00)
[2020-04-18] MEDS ORDERED: NITROGLYCERIN OINT 2%, 1GM TP ONE ×2 (15:00→15:09)
[2020-04-18] MEDS ORDERED: ONDANSETRON 2MG/ML, 2ML IVPush ONE (15:00)
[2020-04-18] MEDS ORDERED: MAALOX/HYOSCYAMINE/LIDOCAINE 45 ML BTL PO ONE (15:00)
[2020-04-18] MEDS ORDERED: MORPHINE SULFATE 4 MG/ML, 1ML IVPush PRN (15:00)
[2020-04-18] MEDS ORDERED: MAALOX/HYOSCYAMINE/LIDOCAINE 45 ML BTL ONE (15:09)
[2020-04-18] MEDS ORDERED: ONDANSETRON 2MG/ML, 2ML ONE (15:09)
[2020-04-18] MEDS ORDERED: MORPHINE SULFATE 4 MG/ML, 1ML ONE (15:09)
[2020-04-18 15:21] LABS: BASOPHILS # (AUTO) 0.06 x10^3/uL (0-0.1); BASOPHILS % (AUTO) 1 % (0-1); EOSINOPHILS # (AUTO) 0.15 x10^3/uL (0-0.4); EOSINOPHILS % (AUTO) 2 % (1-7); LYMPHOCYTES # (AUTO) 3.33 x10^3/uL (1-3.4); LYMPHOCYTES % (AUTO) 34 % (22-44); MD NO; MEAN CORPUSCULAR HEMOGLOBIN 29.4 pg (27.0-34.8); MEAN CORPUSCULAR HGB CONC 31.7 g/dL (32.4-35.8); MEAN CORPUSCULAR VOLUME 92.6 fL (80-100); MEAN PLATELET VOLUME 6.6 fL (7.4-10.4); MONOCYTES # (AUTO) 0.52 x10^3/uL (0.2-0.8); MONOCYTES % (AUTO) 5 % (2-9); NEUTROPHILS # (AUTO) 5.85 x10^3/uL (1.8-6.8); NEUTROPHILS % (AUTO) 59 % (42-75); PLATELET COUNT 555 x10^3/uL (130-400); RED CELL DISTRIBUTION WIDTH 13.6 % (9.6-15.2)
[2020-04-18] MEDS ORDERED: LORazepam 2 MG/ML, 1ML ONE (15:25)
[2020-04-18 15:29] LABS: ALANINE AMINOTRANSFERASE 22 U/L (12-78); ALBUMIN 3.6 g/dL (3.4-5.0); ANION GAP 4 mmol/L (5-15); CHLORIDE 103 mmol/L (98-107); CREATININE 0.71 mg/dL (0.55-1.02)
[2020-04-18] MEDS ORDERED: LORazepam 2 MG/ML, 1ML IVPush ONE (15:30)
[2020-04-18] MEDS ORDERED: PLEASE ENTER HEIGHT AND WEIGHT MC SCH (15:30)
[2020-04-18 15:33] LABS: ALKALINE PHOSPHATASE 95 U/L (45-117); BILIRUBIN,TOTAL 0.3 mg/dL (0.2-1.0); TOTAL PROTEIN 7.2 g/dL (6.4-8.2); TROPONIN I < 0.015 ng/mL (0.000-0.045)
--- NOTE | 2020-04-18 15:33 | NUR ---
THIS IS A 55 YO FEMALE BIB [facility] FROM HOME FOR ACUTE ONSET STERNAL CHEST PAIN RADIATING TO LEFT BREAST/ARM STARTING AT APPROX 1220 PM TODAY, WORSENING AROUND 1500, RATED 10/10. PATIENT TOOK 324MG [facility] ELECTRIC POWER LINE REPAIRER OF EMS. PATIENT HAS HX OF MO IN PAST, CHF, COPD, AFIB, ANXIETY. NON COMPLIANT WITH MEDICATIONS. EN ROUTE PATIENT RECEIVED 0.4MG NITRO, 2MG MORPHINE, 4MG ZOFRAN, NO RELIEF OF PAIN. PATIENT C/O FEELING ANXIOUS AT THIS TIME. ALL MONITORING IN PLACE, NSR ON CATALYST PLANT SUPERVISOR, DIFFICULT TO SEE IF ANY AFIB PRESENT DUE TO ARTIFACT FROM PAITENT MOVMENT. CALL LIGHT IN REACH. VSS. PLACED ON 1L NC FOR COMFORT.
[2020-04-18] MEDS ORDERED: HYDROcodone/APAP 5/325 TABLET PO ONE (16:00)
[2020-04-18] MEDS ORDERED: HYDROcodone/APAP 5/325 TABLET ONE (16:04)
--- NOTE | 2020-04-18 16:08 | NUR ---
PATIENT MEDICATED PER EMAR, TOELRATED PO MEDS AND FLUIDS WELL
--- NOTE | 2020-04-18 16:11 | NUR ---
ADMITTING MD IN ROOM
[2020-04-18 16:21] VITALS: BP 117/61
[2020-04-18] MEDS ORDERED: hydrALAzine 20 MG/ML, 1ML IVPush PRN (16:30)
[2020-04-18] MEDS ORDERED: ONDANSETRON 2MG/ML, 2ML IVPush PRN (16:30)
[2020-04-18] MEDS ORDERED: PROMETHAZINE 25 MG/ML, 1ML IM PRN (16:30)
[2020-04-18] MEDS ORDERED: morphine SULFATE 10 MG/ML, 1ML IVPush PRN (16:30)
[2020-04-18] MEDS ORDERED: LABETALOL 5MG/ML, 20ML IVPush PRN (16:30)
[2020-04-18] MEDS ORDERED: NITROGLYCERIN 0.4 MG BOTTLE (25 TABS) SL PRN (16:30)
[2020-04-18] MEDS ORDERED: NICOTINE 21 MG/24 HR PATCH.TD24 TD SCH (16:30)
[2020-04-18] MEDS ORDERED: ACETAMINOPHEN 325 MG TABLET PO PRN (16:30)
[2020-04-18] MEDS ORDERED: HEPARIN 5,000 UNITS/ML, 1ML SQ SCH (16:30)
[2020-04-18] MEDS ORDERED: LORazepam 0.5MG TABLET PO PRN (16:30)
[2020-04-18] MEDS ORDERED: OXYcodone/APAP 5/325MG TABLET PO PRN (16:30)
--- NOTE | 2020-04-18 16:37 | NUR ---
PATIENT IS DECIDING TO LEAVE AGAINST MEDICAL ADVICE. ADMITTING MD NOTIFIED. PATIENT WAS EDUCATED ON RISKS ASSOCIATED WITH LEAVING AMA AND CONFIRMS UNDERSTANDING. PATIENT SIGNED AMA FORM AT THIS TIME.
[2020-04-18] MEDS ORDERED: ATORVASTATIN 40 MG TABLET PO SCH (21:00)
[2020-04-19] MEDS ORDERED: PANTOPRAZOLE 40 MG IV IVPush SCH (07:30)
[2020-04-19] MEDS ORDERED: ASPIRIN 81 MG TABLET CHEW PO SCH (09:00)
== END 2020-04-18 16:53 | disposition left against medical advice (07) ==
LOC: ED 16:25 → UNDOADMIN 16:27 → EDIP 16:27 → ED 16:53
DX: R07.89 Other chest pain (principal); F41.9 Anxiety disorder, unspecified; R94.31 Abnormal electrocardiogram [ECG] [EKG]; I10 Essential (primary) hypertension; F17.200 Nicotine dependence, unspecified, uncomplicated; I25.2 Old myocardial infarction
CPT/HCPCS: 36415; 71045; 80053; 83880; 84484; 85025; 85379; 93005; 96374; 96375; 99285; J2060; J2270; J2405

== ENCOUNTER 2020-04-20 22:32 | Emergency (ER) | payer MEDICAID ==
[~2020-04-20] VITALS: Ht 167.6 cm; Wt 89.3 kg
[2020-04-20 22:41] VITALS: BP 140/64
[2020-04-20] MEDS ORDERED: LORazepam 1MG TABLET ONE (23:24)
[2020-04-20] MEDS ORDERED: LORazepam 1MG TABLET PO ONE (23:30)
== END 2020-04-20 23:28 | disposition home or self-care (01) ==
LOC: ED 23:12
DX: F41.1 Generalized anxiety disorder (principal); R00.2 Palpitations; I11.0 Hypertensive heart disease with heart failure; I50.9 Heart failure, unspecified; R94.31 Abnormal electrocardiogram [ECG] [EKG]; G89.29 Other chronic pain; F17.200 Nicotine dependence, unspecified, uncomplicated; Z90.49 Acquired absence of other specified parts of digestive tract
CPT/HCPCS: 93005; 99283

== ENCOUNTER 2020-04-25 10:02 | Emergency (ER) | payer MEDICAID ==
[~2020-04-25] VITALS: Ht 170.2 cm; Wt 89.0 kg
[2020-04-25] MEDS ORDERED: LORazepam 1MG TABLET ONE (10:23)
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
[2020-04-25] MEDS ORDERED: LORazepam 1MG TABLET PO ONE (10:30)
[2020-04-25 10:48] LABS: BASOPHILS # (AUTO) 0.06 x10^3/uL (0-0.1); BASOPHILS % (AUTO) 1 % (0-1); EOSINOPHILS # (AUTO) 0.05 x10^3/uL (0-0.4); EOSINOPHILS % (AUTO) 1 % (1-7); LYMPHOCYTES # (AUTO) 2.09 x10^3/uL (1-3.4); LYMPHOCYTES % (AUTO) 21 % (22-44); MD NO; MEAN CORPUSCULAR HEMOGLOBIN 29.6 pg (27.0-34.8); MEAN CORPUSCULAR HGB CONC 32.2 g/dL (32.4-35.8); MEAN CORPUSCULAR VOLUME 91.8 fL (80-100); MEAN PLATELET VOLUME 6.7 fL (7.4-10.4); MONOCYTES # (AUTO) 0.46 x10^3/uL (0.2-0.8); MONOCYTES % (AUTO) 5 % (2-9); NEUTROPHILS # (AUTO) 7.23 x10^3/uL (1.8-6.8); NEUTROPHILS % (AUTO) 73 % (42-75); PLATELET COUNT 433 x10^3/uL (130-400); RED BLOOD COUNT 4.43 x10^6/uL (3.82-5.3); RED CELL DISTRIBUTION WIDTH 13.5 % (9.6-15.2)
[2020-04-25 10:57] LABS: ALANINE AMINOTRANSFERASE 20 U/L (12-78); ALBUMIN 3.7 g/dL (3.4-5.0); ANION GAP 8 mmol/L (5-15); CALCIUM 9.3 mg/dL (8.5-10.1); CHLORIDE 102 mmol/L (98-107); CREATININE 0.85 mg/dL (0.55-1.02)
--- NOTE | 2020-04-25 11:00 | NUR ---
PT AMBULATED TO THE RESTROOM WITH A SEADY GAIT. PT REPORTS THAT SHE CAN NOT BREATH, SPO2 99% ON ROOM AIR. EDUCATED PT THAT HER PO MEDS NEED MORE TIME TO WORK, TRIED DEEP BREATHING AND TURNED OFF THE LIGHTS TO RELAX PT. SHE SATRTED YELLING THAT SHE WAS GOING TO LEAVE. MD YU NOTIFIED. NO NEW ORDERS AT THIS TIME.
[2020-04-25 11:01] LABS: ALKALINE PHOSPHATASE 92 U/L (45-117); BILIRUBIN,TOTAL 0.3 mg/dL (0.2-1.0); TROPONIN I < 0.015 ng/mL (0.000-0.045)
[2020-04-25 11:33] VITALS: BP 113/78
--- NOTE | 2020-04-25 11:35 | NUR ---
INSPECTOR QUALITY ASSURANCE: Patient/Caregiver given discharge instructions and they have confirmed that they understand the instructions. Patient ambulatory with steady gait.
== END 2020-04-25 11:35 | disposition home or self-care (01) ==
LOC: ED 10:52
DX: F41.1 Generalized anxiety disorder (principal); R06.4 Hyperventilation; I25.2 Old myocardial infarction; R07.9 Chest pain, unspecified; J02.9 Acute pharyngitis, unspecified; Z72.9 Problem related to lifestyle, unspecified; J44.9 Chronic obstructive pulmonary disease, unspecified; I25.10 Atherosclerotic heart disease of native coronary artery without angina pectoris; I11.0 Hypertensive heart disease with heart failure; I50.9 Heart failure, unspecified; M79.7 Fibromyalgia; F17.200 Nicotine dependence, unspecified, uncomplicated; Z95.5 Presence of coronary angioplasty implant and graft; Z86.718 Personal history of other venous thrombosis and embolism; Z90.49 Acquired absence of other specified parts of digestive tract
CPT/HCPCS: 36415; 71045; 80053; 83880; 84484; 85025; 93005; 99285

== ENCOUNTER 2020-05-06 09:59 | Emergency (ER) | payer MEDICAID ==
[~2020-05-06] VITALS: Ht 170.2 cm; Wt 89.5 kg
[2020-05-06 10:05] VITALS: BP 126/62
--- NOTE | 2020-05-06 10:26 | NUR ---
FINDING FASTENER: PT WALKED BACK FROM LOBBY TO ROOM AT THIS TIME. STEADY UPON AMBULATION. NO ACUTE DISTRESS NOTED AT THIS TIME.
[2020-05-06] MEDS ORDERED: LORazepam 1MG TABLET ONE (10:42)
[2020-05-06] MEDS ORDERED: LORazepam 1MG TABLET PO ONE (11:00)
== END 2020-05-06 10:53 | disposition home or self-care (01) ==
LOC: ED 10:41
DX: F41.1 Generalized anxiety disorder (principal); R06.4 Hyperventilation; I25.2 Old myocardial infarction; I11.0 Hypertensive heart disease with heart failure; I50.9 Heart failure, unspecified; F17.210 Nicotine dependence, cigarettes, uncomplicated; J44.9 Chronic obstructive pulmonary disease, unspecified; I25.10 Atherosclerotic heart disease of native coronary artery without angina pectoris; Z90.49 Acquired absence of other specified parts of digestive tract; Z86.718 Personal history of other venous thrombosis and embolism
CPT/HCPCS: 99283; 99406

== ENCOUNTER 2020-05-28 12:39 | Emergency (ER) | payer MEDICAID ==
[~2020-05-28] VITALS: Ht 170.2 cm; Wt 88.1 kg
[2020-05-28] MEDS ORDERED: LORA-446 PO (12:51)
[2020-05-28] MEDS ORDERED: ALBU90AE2 INH (12:51)
--- NOTE | 2020-05-28 12:56 | NUR ---
STATES SHE WOKE AROUND 0300 "GASPING FOR AIR". ADMITS TO ANXIETY. STATES SHE HAD A PSYCH CONSULT LAST WEEK; WAITING FOR FOLLOW-UP VISIT. PT SPEAKING RAPIDLY IN COMPLETE SENTENCES. NO MED TAKEN FOR ANXIETY. USES ALBUTEROL INHALER DAILY: 2 PUFFS TID - USED INHALER TODAY
[2020-05-28] MEDS ORDERED: LORazepam 1MG TABLET PO ONE (13:00)
[2020-05-28 13:03] VITALS: BP 140/43
[2020-05-28] MEDS ORDERED: OMEP20CA20 PO (13:03)
[2020-05-28] MEDS ORDERED: ASPI-496 PO (13:03)
[2020-05-28] MEDS ORDERED: LORazepam 1MG TABLET ONE (13:09)
== END 2020-05-28 13:28 | disposition home or self-care (01) ==
LOC: ED 13:08
DX: F41.1 Generalized anxiety disorder (principal); R06.4 Hyperventilation; R06.02 Shortness of breath; J44.9 Chronic obstructive pulmonary disease, unspecified; I11.0 Hypertensive heart disease with heart failure; I50.9 Heart failure, unspecified; F17.200 Nicotine dependence, unspecified, uncomplicated; Z86.718 Personal history of other venous thrombosis and embolism; Z90.49 Acquired absence of other specified parts of digestive tract; Z95.5 Presence of coronary angioplasty implant and graft
CPT/HCPCS: 99283

== ENCOUNTER 2020-06-02 09:59 | Emergency (ER) | payer MEDICAID ==
[~2020-06-02] VITALS: Ht 170.2 cm; Wt 88.2 kg
[~2020-06-02 09:59] MED LIST changes: +ALBU90AE2 INH; +ASPI-496 PO; +LORA-446 PO; +OMEP20CA20 PO
[2020-06-02] MEDS ORDERED: LORazepam 1MG TABLET ONE (10:55)
[2020-06-02] MEDS ORDERED: LORazepam 1MG TABLET PO ONE (11:00)
--- NOTE | 2020-06-02 11:02 | NUR ---
pt medicated per orders, on monitor
[2020-06-02 11:13] LABS: BASOPHILS # (AUTO) 0.03 x10^3/uL (0-0.1); BASOPHILS % (AUTO) 0 % (0-1); EOSINOPHILS # (AUTO) 0.11 x10^3/uL (0-0.4); EOSINOPHILS % (AUTO) 2 % (1-7); LYMPHOCYTES # (AUTO) 2.42 x10^3/uL (1-3.4); LYMPHOCYTES % (AUTO) 36 % (22-44); MD NO; MEAN CORPUSCULAR HEMOGLOBIN 29.4 pg (27.0-34.8); MEAN CORPUSCULAR HGB CONC 31.9 g/dL (32.4-35.8); MEAN CORPUSCULAR VOLUME 92.1 fL (80-100); MEAN PLATELET VOLUME 7.2 fL (7.4-10.4); MONOCYTES # (AUTO) 0.56 x10^3/uL (0.2-0.8); MONOCYTES % (AUTO) 8 % (2-9); NEUTROPHILS # (AUTO) 3.63 x10^3/uL (1.8-6.8); NEUTROPHILS % (AUTO) 54 % (42-75); PLATELET COUNT 311 x10^3/uL (130-400); RED BLOOD COUNT 4.47 x10^6/uL (3.82-5.3); RED CELL DISTRIBUTION WIDTH 13.7 % (9.6-15.2)
[2020-06-02 11:21] LABS: ANION GAP 5 mmol/L (5-15); CALCIUM 9.3 mg/dL (8.5-10.1); CHLORIDE 106 mmol/L (98-107); CREATININE 0.71 mg/dL (0.55-1.02)
[2020-06-02 11:25] LABS: TROPONIN I < 0.015 ng/mL (0.000-0.045)
[2020-06-02 12:23] VITALS: BP 124/65
--- NOTE | 2020-06-02 12:24 | NUR ---
pt declined toradol injection
[2020-06-02] MEDS ORDERED: KETOROLAC 60 MG/2 ML IM ONE (12:30)
== END 2020-06-02 12:25 | disposition home or self-care (01) ==
LOC: ED 11:49
DX: F41.1 Generalized anxiety disorder (principal); R07.89 Other chest pain; R11.0 Nausea; R06.02 Shortness of breath; I25.2 Old myocardial infarction; J44.9 Chronic obstructive pulmonary disease, unspecified; I11.0 Hypertensive heart disease with heart failure; I50.9 Heart failure, unspecified; F17.200 Nicotine dependence, unspecified, uncomplicated
CPT/HCPCS: 36415; 71045; 80048; 82040; 84484; 85025; 93005; 99285

== ENCOUNTER 2020-06-25 16:38 | Emergency (ER) | payer MEDICAID ==
[~2020-06-25] VITALS: Ht 170.2 cm; Wt 90.9 kg
[2020-06-25 16:42] VITALS: BP 131/54
--- NOTE | 2020-06-25 17:18 | NUR ---
THIS IS A 55 YO FEMALE COMING IN FOR INCREASED ANXIETY AFTER WAKING UP 3.5 HOURS AGO, STATES " I JUST CAN'T THINK STRAIGHT, I'M ALL DISCOMBOBULATED". A&OX4, GCS 15, VSS. ALSO STATES "I'VE BEEN PASSING OUT SOMETIMES THE LAST COUPLE WEEKS". UNKNOWN DURATION OF LOC. ALL MONITORING IN PLACE, NSR WITH INTERMITTENT A FLUTTER NOTED ON BASKETBALL PLAYER. CALL LIGHT IN PLACE. DENIES NEEDS AT THIS TIME
[2020-06-25] MEDS ORDERED: LORazepam 1MG TABLET ONE (17:58)
[2020-06-25] MEDS ORDERED: LORazepam 1MG TABLET PO ONE (18:00)
--- NOTE | 2020-06-25 18:07 | NUR ---
PATIENT MEDICATED PER EMAR, TOLERATED WELL
== END 2020-06-25 18:27 | disposition home or self-care (01) ==
LOC: ED 18:01
DX: F41.1 Generalized anxiety disorder (principal); I11.0 Hypertensive heart disease with heart failure; I50.9 Heart failure, unspecified; J44.9 Chronic obstructive pulmonary disease, unspecified; I25.10 Atherosclerotic heart disease of native coronary artery without angina pectoris; M79.7 Fibromyalgia; Z90.49 Acquired absence of other specified parts of digestive tract; Z95.5 Presence of coronary angioplasty implant and graft; Z87.891 Personal history of nicotine dependence
CPT/HCPCS: 99283

== ENCOUNTER 2020-06-28 08:50 | Inpatient (IN) | payer MEDICAID ==
[~2020-06-28] VITALS: Ht 170.2 cm; Wt 94.2 kg
[2020-06-28 09:36] LABS: BASOPHILS # (AUTO) 0.07 x10^3/uL (0-0.1); BASOPHILS % (AUTO) 1 % (0-1); EOSINOPHILS # (AUTO) 0.11 x10^3/uL (0-0.4); EOSINOPHILS % (AUTO) 1 % (1-7); LYMPHOCYTES # (AUTO) 2.15 x10^3/uL (1-3.4); LYMPHOCYTES % (AUTO) 26 % (22-44); MD NO; MEAN CORPUSCULAR HEMOGLOBIN 29.4 pg (27.0-34.8); MEAN CORPUSCULAR HGB CONC 32.2 g/dL (32.4-35.8); MEAN CORPUSCULAR VOLUME 91.4 fL (80-100); MEAN PLATELET VOLUME 6.7 fL (7.4-10.4); MONOCYTES # (AUTO) 0.67 x10^3/uL (0.2-0.8); MONOCYTES % (AUTO) 8 % (2-9); NEUTROPHILS # (AUTO) 5.32 x10^3/uL (1.8-6.8); NEUTROPHILS % (AUTO) 64 % (42-75); PLATELET COUNT 331 x10^3/uL (130-400); RED BLOOD COUNT 4.43 x10^6/uL (3.82-5.3)
[2020-06-28 09:47] LABS: ALANINE AMINOTRANSFERASE 23 U/L (12-78); ALBUMIN 3.8 g/dL (3.4-5.0); ANION GAP 5 mmol/L (5-15); CALCIUM 9.3 mg/dL (8.5-10.1); CHLORIDE 103 mmol/L (98-107); CREATININE 0.81 mg/dL (0.55-1.02)
[2020-06-28 09:50] LABS: ALKALINE PHOSPHATASE 95 U/L (45-117); BILIRUBIN,TOTAL 0.3 mg/dL (0.2-1.0); TOTAL PROTEIN 7.4 g/dL (6.4-8.2)
--- NOTE | 2020-06-28 09:52 | NUR ---
PT AMBULATORY FROM [facility] TO ED ROOM W/ LIMPING GAIT. VOIDED SPECIMEN PROVIDED. PT C/O LT SIDED NUMBESS - STARTED 4 DAYS AGO IN LEG AND WORKED UP OVER PAST FEW DAYS. REPORTS ANXIETY "SINCE THIS WILKERSON VIRUS THING STARTED". STATES "I CAN'T BREATHE". ABLE TO SPEAK IN COMPLETE SENTENCES, ABLE TO MOVE ALL EXTREMETIES INDEPENDENTLY. NO FACIAL DROOP, EXTREMETY STRENGTH EQUAL BILAT. APPOINTMENT PENDING SUNDAY W/ PSYCHIATRIST.
--- NOTE | 2020-06-28 10:02 | NUR ---
MED STUDENT BS FOR EXAM. PT SPEAKING IN COMPLETE SENTENCES; CONTINUES TO STATE "I CAN'T BREATHE". O2 SAT 99% RA. O2 1LN APPLIED FOR COMFORT MEASURE.
[2020-06-28] MEDS ORDERED: LORazepam 1MG TABLET ONE ×2 (10:43→14:14)
--- NOTE | 2020-06-28 10:58 | NUR ---
PT REFUSING ANTECUBITAL IV ACCESS. 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 PT INSISTING ON POSTERIOR ARM IV ACCESS. MINIMAL PERIPHERAL VEINS NOTED/PALPATED. WILL SEEK U/S IV ACCESS.
[2020-06-28] MEDS ORDERED: LORazepam 1MG TABLET PO ONE ×2 (11:00→14:00)
--- NOTE | 2020-06-28 11:04 | NUR ---
ARIEL JACOBS AT BS FOR U/S IV. PT ARGUING W/ REYNALDO ABOUT ACCESS LOCATIONS. REYNALDO ATTEMPTING TO EXPLAIN PROCEDURE AND ACCESS LOCATIONS.
--- NOTE | 2020-06-28 11:06 | NUR ---
HEARD REYNALDO INFORM PT THAT HE WILL ATTEMPT IV ACCESS IN PT'S PREFERRED LOCATION AND THAT IF HE IS UNSUCCESSFUL, HE WILL USE A DIFFERENT LOCATION. PT REPLIED "YOU'RE GOING TO [place] ON PURPOSE!" REYNALDO EXPLAINED PROCEDURE AGAIN.
--- NOTE | 2020-06-28 11:14 | NUR ---
PT HAS FINALLY AGREED TO IV PLACEMENT.
--- NOTE | 2020-06-28 11:20 | NUR ---
MED STUDENT AT BS. 1ST IV ATTEMPT UNSUCCESSFUL. ARIEL JACOBS NOW ATTEMPTING U/S IV. PT CONTINUING TO ARGUE IV ACCESS.
--- NOTE | 2020-06-28 11:32 | NUR ---
DR COLLINS NOW BS. PER REYNALDO, IV WAS SUCCESSFULLY INSERTED WHEN PT INSISTED UPON REMOVAL. PER DR KEITH, ONE MORE ATTEMPT MAY BE DONE; IF UNSUCCESSFUL, DISCONTINUE ATTEMPTS.
[2020-06-28] MEDS ORDERED: LORazepam 2 MG/ML, 1ML ONE (12:09)
--- NOTE | 2020-06-28 12:10 | NUR ---
PT DOZING ON MACY. DIRECTOR ALUMNI RELATIONS HERE FOR PT TRANSPORT
[2020-06-28] MEDS: LORazepam 2 MG/ML, 1ML IVPush ONE ×2 (12:11→14:28)
--- NOTE | 2020-06-28 12:18 | NUR ---
IV OCCLUDED; UNABLE TO ADMINISTER SALINE FLUSH OR ATIVAN. FELTING MACHINE OPERATOR HELPER AWARE, TECH WILL CONSULT MRI RE: MRI W/OUT CONTRANST. WILL NOTIFIY ERP.
--- NOTE | 2020-06-28 12:20 | NUR ---
PER LOGISTICS MANAGEMENT SPECIALIST; MRI ORDER ON HOLD UNTIL VALID IV ACCESS IS ESTABLISHED.
--- NOTE | 2020-06-28 12:50 | NUR ---
PT DR COLLINS, ATTEMPT IV AGAIN, IF PT PERMITS.
--- NOTE | 2020-06-28 12:53 | NUR ---
PT NOTIFIED OF DR COLLINS'S INSTRUCTION. PT AGREEABLE TO ANOTHER U/S IV ATTEMPT Addendum: 06/28/20 at 1257 by VINCENT PT SITTING QUIETLY ON GURNEY. O2 NC NOT ON PT'S FACE. RESP EVEN & UNLABORED, SPEECH CLEAR.
--- NOTE | 2020-06-28 12:56 | NUR ---
PT AMBULATORY TO & FROM [facility] BR W/OUT INCIDENT; GAIT STEADY.
--- NOTE | 2020-06-28 13:18 | NUR ---
IV ASSESSED PER HU STEWART; ALSO FOUND IV TO BE OCCLUDED; IV DC'D.
--- NOTE | 2020-06-28 14:12 | NUR ---
CENTRAL LINE CART TO ROOM; ERP NOTIFIED.
--- NOTE | 2020-06-28 14:15 | NUR ---
PT DOZING ON MACY; RESP EVEN & UNLBORED.
[2020-06-28 14:28] VITALS: BP 137/49
--- NOTE | 2020-06-28 14:39 | NUR ---
PT REPORT TO HU VILLEGAS FOR ROOM 337. PT TO GO TO IR FOR PICC LINE AND THEN TO FLOOR.
[2020-06-28] MEDS ORDERED: ACETAMINOPHEN 325 MG TABLET PO PRN (15:30)
[2020-06-28] MEDS ORDERED: SENNA/DOCUSATE TABLET PO PRN (15:30)
[2020-06-28] MEDS ORDERED: POLYETHYLENE GLYCOL 17 GM PACKET PO PRN (15:30)
[2020-06-28] MEDS ORDERED: ONDANSETRON 4 MG TABLET PO PRN (15:30)
[2020-06-28] MEDS ORDERED: ALBUTEROL HFA 90 MCG/SPRAY INH PRN (15:30)
[2020-06-28] MEDS ORDERED: ATORVASTATIN 80 MG TABLET PO SCH (21:00)
[2020-06-29] MEDS ORDERED: OMEPRAZOLE 20 MG CAPSULE.DR PO SCH (09:00)
[2020-06-29] MEDS ORDERED: CLOPIDOGREL 75 MG TABLET PO SCH (09:00)
[2020-06-29] MEDS ORDERED: ASPIRIN 81 MG TABLET CHEW PO/NG SCH (09:00)
[2020-06-29] MEDS ORDERED: ASPIRIN 81 MG TABLET EC PO SCH (09:00)
== END 2020-06-28 16:03 | disposition left against medical advice (07) | DRG 93 ==
LOC: ED 09:58 → EDIP 13:59 → 3N 15:13
PROVIDERS: ADMIT Internal Medicine; ATTEND Internal Medicine
DX: R20.2 Paresthesia of skin (principal); F41.9 Anxiety disorder, unspecified; I11.0 Hypertensive heart disease with heart failure; I50.9 Heart failure, unspecified; J44.9 Chronic obstructive pulmonary disease, unspecified; R06.4 Hyperventilation; I25.2 Old myocardial infarction; Z87.891 Personal history of nicotine dependence
CPT/HCPCS: 36415; 70450; 80053; 83036; 85025; 93005; G0378; J2060

== ENCOUNTER 2020-07-10 18:32 | Emergency (ER) | payer MEDICAID ==
[~2020-07-10] VITALS: Ht 170.2 cm; Wt 88.0 kg
--- NOTE | 2020-07-10 18:56 | NUR ---
THIS IS A 55 YO FEMALE BIB [facility] FROM HOME FOR NUMBNESS AND TINGLING, AND PAIN TO ENTIRE LEFT SIDE OF BODY, WITH SPASMS HAPPENING TODAY. NEGATIVE STROKE SCALE WITH [facility] AND HERE, CIRCULATION AND MOVEMENT INTACT. PATIENT AMBULATORY, A&OX4 PIV PLACED AND GIVEN 50MCG FENTANYL. PATIENT LEFT AMA LAST VISIT "THEY WWANTED TO DO AN MRI BUT NOBODY COULD TAKE CARE OF MY DOG SO I HAD TO LEAVE". PATIENT APPEARS VERY ANXIOUS HERE. ALL MONITORING IN PLACE, NSR ON HOSE WRAPPER. CALL LIGHT IN REACH, REPORT GIVEN TO HU TORRES.
[2020-07-10] MEDS ORDERED: LORazepam 2 MG/ML, 1ML ONE (18:58)
[2020-07-10] MEDS ORDERED: LORazepam 2 MG/ML, 1ML IVPush ONE (19:00)
[2020-07-10] MEDS ORDERED: SODIUM CHLORIDE FLUSH 10ML SYR IVF ONE (19:00)
[2020-07-10] MEDS ORDERED: MORPHINE SULFATE 4 MG/ML, 1ML ONE (19:08)
[2020-07-10 19:11] LABS: BASOPHILS # (AUTO) 0.04 x10^3/uL (0-0.1); BASOPHILS % (AUTO) 1 % (0-1); EOSINOPHILS # (AUTO) 0.11 x10^3/uL (0-0.4); EOSINOPHILS % (AUTO) 1 % (1-7); LYMPHOCYTES % (AUTO) 38 % (22-44); MD NO; MEAN CORPUSCULAR HEMOGLOBIN 29.8 pg (27.0-34.8); MEAN CORPUSCULAR HGB CONC 32.9 g/dL (32.4-35.8); MEAN PLATELET VOLUME 7.3 fL (7.4-10.4); MONOCYTES # (AUTO) 0.63 x10^3/uL (0.2-0.8); MONOCYTES % (AUTO) 8 % (2-9); NEUTROPHILS # (AUTO) 4.22 x10^3/uL (1.8-6.8); NEUTROPHILS % (AUTO) 53 % (42-75); PLATELET COUNT 342 x10^3/uL (130-400)
--- NOTE | 2020-07-10 19:12 | NUR ---
PT MEDICATED FOR ANXIETY AND PAIN AT THIS TIME.
--- NOTE | 2020-07-10 19:14 | NUR ---
PT TO MRI VIA [facility] AT THIS TIME.
[2020-07-10 19:24] LABS: ALANINE AMINOTRANSFERASE 24 U/L (12-78); ALBUMIN 3.8 g/dL (3.4-5.0); ANION GAP 5 mmol/L (5-15); CALCIUM 9.3 mg/dL (8.5-10.1); CHLORIDE 104 mmol/L (98-107)
[2020-07-10 19:27] LABS: ALKALINE PHOSPHATASE 100 U/L (45-117); BILIRUBIN,TOTAL 0.2 mg/dL (0.2-1.0); TOTAL PROTEIN 7.4 g/dL (6.4-8.2)
[2020-07-10] MEDS ORDERED: MORPHINE SULFATE 4 MG/ML, 1ML IVPush PRN (19:30)
[2020-07-10] MEDS ORDERED: ONDANSETRON 2MG/ML, 2ML IVPush ONE (19:30)
--- NOTE | 2020-07-10 19:59 | NUR ---
PT BACK FROM MRI VIA [facility]. PER TECH, PT DID NOT TOLERATE PROCEDURE. DR PECK NOTIFIED OF PT INABILITY TO TOLERATE MRI.
--- NOTE | 2020-07-10 20:05 | NUR ---
PT TO CT VIA [facility] AT THIS TIME.
[2020-07-10 20:11] VITALS: BP 127/77
--- NOTE | 2020-07-10 20:11 | NUR ---
PT BACK FROM CT AT THIS TIME.
--- NOTE | 2020-07-10 21:18 | NUR ---
PT CALLING SPOUSE FOR [facility] AT THIS TIME. AWAITING D/C SUMMARY.
--- NOTE | 2020-07-10 21:40 | NUR ---
PT BECOMING VERBALLY AGGRESSIVE WITH STAFF. DR PECK NOTIFIED OF PT AGGRESSION AND VERBALIZES THAT HE WILL SPEAK WITH PT AT THIS TIME.
--- NOTE | 2020-07-10 21:46 | NUR ---
PATIENT CAME OUT OF HER ROOM WITHOUT A MASK DEMANDING TO SEE A DOCTOR. PATIENT HAD ALREADY BEEN SEEN BY MD ALBERTO BELL NAD DISCHARGED. PATIENT VERBALLY ABUSIVE TO THIS RN STATES "YOU CAN FUCK OFF YOU FUCKING BITCH. NOBODY CAME BY, DON'T TELL ME WHO WAS IN HERE". THIS RN STATED THAT THE PA STATED SHE WOULD STOP BY TO EXPLAIN DISCHARGE. THIS RN BROUGHT PATIENT A MASK AND EDUCATED PATIENT SHE CANNOT TALK LIKE THAT TO STAFF, AND REMINDED TO BE RESPECTFUL, PATIENT STATES "IT'S NOT MY FAULT YOU'RE A LIAR, YOU SAID SOMEONE WAS IN HERE AND THEY WEREN'T. FUCK OFF". PATIENT CAME BACK OUT OF ROOM, STARTED YELLING AT THIS RN, THIS RN CALMLY STATES SHE CAN LEAVE HERSELF SHE HAS BEEN DISCHARGED OR SHE CAN BE ESCORTED OUT BY SECURITY. PATIENT LEFT TO DISCHARGE WHILE YELLING IN THE HALLWAY.
== END 2020-07-10 22:00 | disposition home or self-care (01) ==
LOC: ED 18:55
DX: R20.2 Paresthesia of skin (principal); I11.0 Hypertensive heart disease with heart failure; I50.9 Heart failure, unspecified; F41.1 Generalized anxiety disorder; J44.9 Chronic obstructive pulmonary disease, unspecified; I25.10 Atherosclerotic heart disease of native coronary artery without angina pectoris; I25.2 Old myocardial infarction; G89.29 Other chronic pain; F17.200 Nicotine dependence, unspecified, uncomplicated; Z86.73 Personal history of transient ischemic attack (TIA), and cerebral infarction without residual deficits; Z86.718 Personal history of other venous thrombosis and embolism; Z90.49 Acquired absence of other specified parts of digestive tract
CPT/HCPCS: 36415; 70450; 80053; 85025; 93005; 96374; 96375; 99285; J2060; J2270

== ENCOUNTER 2020-07-26 00:12 | Emergency (ER) | payer MEDICAID ==
[~2020-07-26] VITALS: Ht 170.2 cm; Wt 92.5 kg
[2020-07-26 00:14] VITALS: BP 126/53
[2020-07-26] MEDS ORDERED: LORazepam 1MG TABLET PO ONE (00:30)
[2020-07-26] MEDS ORDERED: LORazepam 1MG TABLET ONE (00:39)
--- NOTE | 2020-07-26 00:48 | NUR ---
Break Coverage: assumed care of pt on behalf of primary Rn for lunch break only. pt here for anxiety. pt A&O x4. ambulating in room without difficulty. tp medicated for anxiety per order. tp made aware that she cannot drive while taking ativan. tp verbalized understanding and states that her will be driving her home
--- NOTE | 2020-07-26 00:56 | NUR ---
Assist RN: patient discharged with prescription and instruction. verbalized understanding.
== END 2020-07-26 00:59 | disposition home or self-care (01) ==
LOC: ED 00:15
DX: F41.1 Generalized anxiety disorder (principal); I25.2 Old myocardial infarction; I11.0 Hypertensive heart disease with heart failure; I50.9 Heart failure, unspecified; J44.9 Chronic obstructive pulmonary disease, unspecified; Z86.718 Personal history of other venous thrombosis and embolism; Z86.711 Personal history of pulmonary embolism; Z90.49 Acquired absence of other specified parts of digestive tract; Z95.5 Presence of coronary angioplasty implant and graft
CPT/HCPCS: 99283

== ENCOUNTER 2020-07-27 03:36 | Emergency (ER) | payer MEDICAID ==
[~2020-07-27] VITALS: Ht 170.2 cm; Wt 92.4 kg
[2020-07-27 03:38] VITALS: BP 120/43
--- NOTE | 2020-07-27 03:48 | NUR ---
PT AMBULATORY TO ROOM WITH STEADY GAIT. SITTING ON GURNEY, NADN, RESPIRATIONS EVEN AND UNLABORED.
[2020-07-27] MEDS ORDERED: LORazepam 1MG TABLET ONE (04:17)
--- NOTE | 2020-07-27 04:29 | NUR ---
PT SNIFFLING WITH TEARS WHEN THIS RN ENTERED ROOM. RN OFFERED TISSUES AND PT LAUGHED "DON'T MAKE ME LAUGH." ALL NEEDS MET.
[2020-07-27] MEDS ORDERED: LORazepam 1MG TABLET PO ONE (04:30)
== END 2020-07-27 04:35 | disposition home or self-care (01) ==
LOC: ED 04:20
DX: F41.1 Generalized anxiety disorder (principal); I25.2 Old myocardial infarction; J44.9 Chronic obstructive pulmonary disease, unspecified; I25.10 Atherosclerotic heart disease of native coronary artery without angina pectoris; I11.0 Hypertensive heart disease with heart failure; I50.9 Heart failure, unspecified; Z90.49 Acquired absence of other specified parts of digestive tract; Z86.73 Personal history of transient ischemic attack (TIA), and cerebral infarction without residual deficits; Z86.718 Personal history of other venous thrombosis and embolism
CPT/HCPCS: 99283

== ENCOUNTER 2020-08-01 07:17 | Emergency (ER) | payer MEDICAID ==
[~2020-08-01] VITALS: Ht 175.3 cm; Wt 95.0 kg
[2020-08-01 07:25] VITALS: BP 130/97
--- NOTE | 2020-08-01 07:52 | NUR ---
Pt yelling at patient placement coordinator that why has she not gotten a room, pt informed that the MARKUS score tool is being used to screen patients and that we see patients based off of there severity. Pt informed that her vitals wnl and the ekg wnl per provider. Pt pacing in lobby, this rn apologized for wait time. Pt verbalized "you were shilpa rude to me when you gave me an explination on why my mask had to stay on. I know its covid and thats why im here." Pt informed when in triage to please place maske back on to protect staff and herself from infection. Pt cussing at RN and saying that this RN is just "talking shit and not taking her back becuase this RN does not like her". Pt informed that is not the case and other patients are waiting as well. Once again RN apologized for wait time.
--- NOTE | 2020-08-01 08:00 | NUR ---
RN went into lobby to assit a patient, Pt vebralized "wow you took that alejandro back already and he doesnt even look sick?"
--- NOTE | 2020-08-01 08:03 | NUR ---
Pt shouting that she needs to go back before a bladder pain, pt informed that she cannot yell patiants medical information. Pt requesting to speak to charge nurse now, surgical scheduler informed.
--- NOTE | 2020-08-01 08:07 | NUR ---
RAILROAD CAR CHECKER: PT AMBULATORY TO ROOM FROM LOBBY
[2020-08-01] MEDS ORDERED: LORazepam 1MG TABLET PO ONE (08:30)
[2020-08-01] MEDS ORDERED: LORazepam 1MG TABLET ONE (08:37)
--- NOTE | 2020-08-01 08:39 | NUR ---
Pt medicated per emar.
--- NOTE | 2020-08-01 08:44 | NUR ---
DC RN ONLY:Patient/Caregiver given discharge instructions and they have confirmed that they understand the instructions. Patient ambulatory with steady gait.
== END 2020-08-01 08:46 | disposition home or self-care (01) ==
LOC: ED 08:28
DX: F41.1 Generalized anxiety disorder (principal); I44.4 Left anterior fascicular block; I21.9 Acute myocardial infarction, unspecified; J44.9 Chronic obstructive pulmonary disease, unspecified; I11.0 Hypertensive heart disease with heart failure; I50.9 Heart failure, unspecified; I25.10 Atherosclerotic heart disease of native coronary artery without angina pectoris; F17.210 Nicotine dependence, cigarettes, uncomplicated; I25.2 Old myocardial infarction; M79.7 Fibromyalgia; Z86.718 Personal history of other venous thrombosis and embolism; Z90.49 Acquired absence of other specified parts of digestive tract; Z86.73 Personal history of transient ischemic attack (TIA), and cerebral infarction without residual deficits
CPT/HCPCS: 93005; 99283; 99406

== ENCOUNTER 2020-09-08 01:39 | Emergency (ER) | payer MEDICAID ==
[~2020-09-08] VITALS: Ht 170.2 cm; Wt 92.5 kg
[2020-09-08 01:42] VITALS: BP 156/90
[2020-09-08] MEDS ORDERED: LORazepam 1MG TABLET ONE (01:57)
[2020-09-08] MEDS ORDERED: LORazepam 1MG TABLET PO ONE (02:00)
== END 2020-09-08 02:17 | disposition home or self-care (01) ==
LOC: ED 02:00
DX: F41.1 Generalized anxiety disorder (principal); I11.0 Hypertensive heart disease with heart failure; I50.9 Heart failure, unspecified; I25.2 Old myocardial infarction; K27.9 Peptic ulcer, site unspecified, unspecified as acute or chronic, without hemorrhage or perforation; Z90.49 Acquired absence of other specified parts of digestive tract
CPT/HCPCS: 99283

== ENCOUNTER 2020-09-21 06:25 | Emergency (ER) | payer MEDICAID ==
[~2020-09-21] VITALS: Ht 170.2 cm; Wt 94.3 kg
[2020-09-21 06:29] VITALS: BP 146/55
[2020-09-21] MEDS ORDERED: LORazepam 1MG TABLET PO ONE (07:00)
[2020-09-21] MEDS ORDERED: LORazepam 1MG TABLET ONE (07:01)
--- NOTE | 2020-09-21 07:03 | NUR ---
PT PRESENTED TO ED D/T ANXIXETY. PT STATES HAS BEEN UNEMPLOYED AND UNABLE TO GET INTO PCP. PT DENIES SI/HI. A&OX4.
--- NOTE | 2020-09-21 07:07 | NUR ---
PT MEDICATED PER EMAR.
--- NOTE | 2020-09-21 07:12 | NUR ---
PT DC HOME IN A STABLE CONDITION. DC INSTRUCTIONS DISCUSSED WITH PT. PT VERBALIZED UNDERSTANDING. NO FURTHER QUESTIONS OR CONCERNES EXPRESSED AT THAT TIME. PT AMBULATED TO DC DESK WITH A STEADY GAIT.
[2020-09-22] MEDS ORDERED: LORA-446 PO (10:57)
== END 2020-09-21 07:14 | disposition home or self-care (01) ==
LOC: ED 07:13
DX: F41.1 Generalized anxiety disorder (principal); R06.4 Hyperventilation; J44.9 Chronic obstructive pulmonary disease, unspecified; I11.0 Hypertensive heart disease with heart failure; I50.9 Heart failure, unspecified; M79.7 Fibromyalgia; Z86.73 Personal history of transient ischemic attack (TIA), and cerebral infarction without residual deficits; Z86.718 Personal history of other venous thrombosis and embolism; Z90.49 Acquired absence of other specified parts of digestive tract
CPT/HCPCS: 99283

== ENCOUNTER 2020-09-22 10:19 | Emergency (ER) | payer MEDICAID ==
[~2020-09-22] VITALS: Ht 170.2 cm; Wt 94.6 kg
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
[2020-09-22] MEDS ORDERED: LORA-446 PO (10:57)
[2020-09-22] MEDS ORDERED: LORazepam 1MG TABLET ONE (10:59)
[2020-09-22] MEDS ORDERED: LORazepam 1MG TABLET PO ONE (11:00)
--- NOTE | 2020-09-22 11:00 | NUR ---
ATIVAN GIVEN PER EMAR
[2020-09-22 11:05] VITALS: BP 118/58
--- NOTE | 2020-09-22 11:48 | NUR ---
PT PACING IN ROOM; REPORTS INCREASE IN ANXIETY. INFORMED PT OF PENDING DC AND RX FOR ATARAX. PT STATES "THEY WON'T FILL THAT FOR ME BECAUSE I'M ALLERGIC TO [facility]". RAY VIEIRA CONSULTED.
== END 2020-09-22 11:54 | disposition home or self-care (01) ==
LOC: ED 11:24
DX: F41.1 Generalized anxiety disorder (principal); R06.4 Hyperventilation; J44.9 Chronic obstructive pulmonary disease, unspecified; I50.9 Heart failure, unspecified; I11.0 Hypertensive heart disease with heart failure; I25.2 Old myocardial infarction; I25.10 Atherosclerotic heart disease of native coronary artery without angina pectoris; F17.200 Nicotine dependence, unspecified, uncomplicated; Z86.73 Personal history of transient ischemic attack (TIA), and cerebral infarction without residual deficits; Z86.718 Personal history of other venous thrombosis and embolism
CPT/HCPCS: 99283

== ENCOUNTER 2020-09-30 21:36 | Emergency (ER) | payer MEDICAID ==
[~2020-09-30] VITALS: Ht 170.2 cm; Wt 93.9 kg
--- NOTE | 2020-10-01 | NUR ---
LATE ENTRY D/T PT CARE: PT CAME INTO ED TODAY FOR UPPER LEFT SIDED DENTAL PAIN,NO SWELLING NOTED, PT DENIES DRAINAGE, NO VISION CHANGES, NAD, WCTM.
[2020-10-01] MEDS ORDERED: LIDOCAINE-MPF 1%, 5ML ONE (00:02)
[2020-10-01] MEDS ORDERED: BUPIVACAINE 0.25% ONE (00:02)
[2020-10-01] MEDS ORDERED: HYDROcodone/APAP 5/325 TABLET ONE (00:03)
--- NOTE | 2020-10-01 00:10 | NUR ---
KONSTANTIN SOLIS AND DANETTE BELL AT FOR EVAL AND POC. PT DECLINED NERVE BLOCK. MEDICATED PER DEC FOR PAIN, PROVIDED DENTAL REFERRALS. MEENA
[2020-10-01] MEDS ORDERED: BUPIVACAINE 0.25% INFIL ONE (00:30)
[2020-10-01] MEDS ORDERED: HYDROcodone/APAP 5/325 TABLET PO ONE (00:30)
[2020-10-01 00:36] VITALS: BP 164/101
--- NOTE | 2020-10-01 00:37 | NUR ---
Patient given discharge instructions and they have confirmed that they understand the instructions. Patient ambulatory with steady gait WITH WALKER, NAD, DENIES ADDITIONAL QUESTIONS OR NEEDS. NO PERSONAL BELONGINGS LEFT IN ROOM AT TIME OF DC
== END 2020-10-01 00:39 | disposition home or self-care (01) ==
LOC: ED 10-01 00:12
DX: K08.89 Other specified disorders of teeth and supporting structures (principal); I10 Essential (primary) hypertension; I25.2 Old myocardial infarction
CPT/HCPCS: 99283

== ENCOUNTER 2020-10-04 23:05 | Emergency (ER) | payer MEDICAID ==
[~2020-10-04] VITALS: Ht 170.2 cm; Wt 88.0 kg
[2020-10-04] MEDS ORDERED: ONDANSETRON ODT 4 MG ONE (23:11)
[2020-10-04] MEDS ORDERED: LORazepam 1MG TABLET ONE (23:12)
--- NOTE | 2020-10-04 23:18 | NUR ---
chest pain x 1 day. PT also with complaints of severe anxiety. +n/v. pt medicated for nausea and anxiety per emar. pt attached to all monitors.
[2020-10-04] MEDS ORDERED: LORazepam 1MG TABLET PO ONE (23:30)
[2020-10-04] MEDS ORDERED: SODIUM CHLORIDE FLUSH 10ML SYR IVF ONE (23:30)
[2020-10-04] MEDS ORDERED: ONDANSETRON ODT 4 MG PO ONE (23:30)
--- NOTE | 2020-10-05 00:05 | NUR ---
PT AMBULATORY TO THE BATHROOM WITH A STEADY GAIT
[2020-10-05 00:06] LABS: BASOPHILS % (AUTO) 1 % (0-1); EOSINOPHILS % (AUTO) 2 % (1-7); LYMPHOCYTES % (AUTO) 44 % (22-44); MEAN CORPUSCULAR HEMOGLOBIN 29.8 pg (27.0-34.8); MEAN CORPUSCULAR HGB CONC 33.2 g/dL (32.4-35.8); MEAN PLATELET VOLUME 7.4 fL (7.4-10.4); MONOCYTES % (AUTO) 9 % (2-9); NEUTROPHILS % (AUTO) 44 % (42-75); PLATELET COUNT 321 x10^3/uL (130-400); RED BLOOD COUNT 4.82 x10^6/uL (3.82-5.3)
[2020-10-05 00:08] LABS: MD NO
[2020-10-05 00:19] LABS: ALANINE AMINOTRANSFERASE 26 U/L (12-78); ALBUMIN 3.6 g/dL (3.4-5.0); ANION GAP 0 mmol/L (5-15); CALCIUM 9.2 mg/dL (8.5-10.1); CHLORIDE 106 mmol/L (98-107); CREATININE 0.76 mg/dL (0.55-1.02)
[2020-10-05 00:24] LABS: ALKALINE PHOSPHATASE 76 U/L (45-117); BILIRUBIN,TOTAL 0.2 mg/dL (0.2-1.0); TOTAL PROTEIN 6.9 g/dL (6.4-8.2); TROPONIN I < 0.015 ng/mL (0.000-0.045)
[2020-10-05] MEDS ORDERED: ACETAMINOPHEN 500 MG TABLET ONE (00:28)
[2020-10-05] MEDS ORDERED: ACETAMINOPHEN 500 MG TABLET PO ONE (00:30)
[2020-10-05] MEDS ORDERED: LORazepam 1MG TABLET ONE (00:44)
[2020-10-05] MEDS ORDERED: LORazepam 1MG TABLET PO ONE (01:00)
[2020-10-05 01:03] VITALS: BP 144/68
== END 2020-10-05 01:05 | disposition home or self-care (01) ==
LOC: ED 23:37
DX: R07.2 Precordial pain (principal); R11.0 Nausea; R41.1 Anterograde amnesia; R94.31 Abnormal electrocardiogram [ECG] [EKG]; J44.9 Chronic obstructive pulmonary disease, unspecified; I11.0 Hypertensive heart disease with heart failure; I50.9 Heart failure, unspecified; I25.2 Old myocardial infarction; F17.210 Nicotine dependence, cigarettes, uncomplicated; Z86.73 Personal history of transient ischemic attack (TIA), and cerebral infarction without residual deficits; Z87.11 Personal history of peptic ulcer disease
CPT/HCPCS: 36415; 71045; 80053; 83690; 84484; 85025; 99284; Q0162

== ENCOUNTER 2020-10-07 03:30 | Emergency (ER) | payer MEDICAID ==
[~2020-10-07] VITALS: Ht 170.2 cm; Wt 92.9 kg
[2020-10-07] MEDS ORDERED: LORazepam 1MG TABLET ONE (03:51)
--- NOTE | 2020-10-07 03:58 | NUR ---
PT STATES VERY BAD ANXIETY AT THIS TIME, PT MEDICATED PER EMAR, PT ON MONITORS
[2020-10-07] MEDS ORDERED: LORazepam 1MG TABLET PO ONE (04:00)
[2020-10-07 04:09] VITALS: BP 121/65
== END 2020-10-07 04:10 | disposition home or self-care (01) ==
LOC: ED 04:01
DX: F41.1 Generalized anxiety disorder (principal); I45.9 Conduction disorder, unspecified; I21.9 Acute myocardial infarction, unspecified; J44.9 Chronic obstructive pulmonary disease, unspecified; I25.10 Atherosclerotic heart disease of native coronary artery without angina pectoris; I11.0 Hypertensive heart disease with heart failure; I50.9 Heart failure, unspecified; M79.7 Fibromyalgia; F17.210 Nicotine dependence, cigarettes, uncomplicated; Z95.5 Presence of coronary angioplasty implant and graft; Z86.718 Personal history of other venous thrombosis and embolism; Z86.73 Personal history of transient ischemic attack (TIA), and cerebral infarction without residual deficits; Z90.49 Acquired absence of other specified parts of digestive tract
CPT/HCPCS: 93005; 99283

== ENCOUNTER 2020-10-08 01:32 | Emergency (ER) | payer MEDICAID ==
[~2020-10-08] VITALS: Ht 170.2 cm; Wt 93.0 kg
[2020-10-08] MEDS ORDERED: LORazepam 0.5MG TABLET PO ONE (02:00)
[2020-10-08] MEDS ORDERED: LORazepam 0.5MG TABLET ONE (02:06)
[2020-10-08 02:13] VITALS: BP 127/84
== END 2020-10-08 02:24 | disposition home or self-care (01) ==
LOC: ED 02:01
DX: F41.1 Generalized anxiety disorder (principal); I25.2 Old myocardial infarction; J44.9 Chronic obstructive pulmonary disease, unspecified; I11.0 Hypertensive heart disease with heart failure; I50.9 Heart failure, unspecified; M79.7 Fibromyalgia; F17.210 Nicotine dependence, cigarettes, uncomplicated
CPT/HCPCS: 99283; 99406

== ENCOUNTER 2020-10-08 10:03 | Emergency (ER) | payer MEDICAID ==
[~2020-10-08] VITALS: Ht 170.2 cm; Wt 92.1 kg
[2020-10-08 10:19] VITALS: BP 115/58
[2020-10-08] MEDS ORDERED: LORazepam 1MG TABLET ONE (11:01)
--- NOTE | 2020-10-08 11:03 | NUR ---
MEDICATED PER ORDERS
[2020-10-08] MEDS ORDERED: LORazepam 1MG TABLET PO ONE (11:30)
--- NOTE | 2020-10-08 11:47 | NUR ---
Patient/Caregiver given discharge instructions and they have confirmed that they understand the instructions. Patient ambulatory with steady gait.
== END 2020-10-08 11:48 | disposition home or self-care (01) ==
LOC: ED 10:17
DX: F41.1 Generalized anxiety disorder (principal)
CPT/HCPCS: 99283

== ENCOUNTER 2020-10-10 06:50 | Emergency (ER) | payer MEDICAID ==
[~2020-10-10] VITALS: Ht 170.2 cm; Wt 92.1 kg
[2020-10-10 06:55] VITALS: BP 126/57
--- NOTE | 2020-10-10 09:45 | NUR ---
ADAMX1
--- NOTE | 2020-10-10 10:23 | NUR ---
NILX2
== END 2020-10-10 10:57 | disposition left against medical advice (07) ==
LOC: ED 10:51
DX: F43.9 Reaction to severe stress, unspecified (principal); F41.9 Anxiety disorder, unspecified
CPT/HCPCS: 99281

== ENCOUNTER 2020-10-13 07:18 | Emergency (ER) | payer MEDICAID ==
[~2020-10-13] VITALS: Ht 170.2 cm; Wt 93.3 kg
[2020-10-13 07:35] VITALS: BP 143/68
[2020-10-13] MEDS ORDERED: LORazepam 1MG TABLET ONE (08:24)
[2020-10-13] MEDS ORDERED: LORazepam 1MG TABLET PO ONE (08:30)
== END 2020-10-13 08:38 | disposition home or self-care (01) ==
LOC: ED 07:44
DX: F41.1 Generalized anxiety disorder (principal); I11.0 Hypertensive heart disease with heart failure; I50.9 Heart failure, unspecified; J44.9 Chronic obstructive pulmonary disease, unspecified; I25.2 Old myocardial infarction; M79.7 Fibromyalgia; F17.200 Nicotine dependence, unspecified, uncomplicated; Z90.49 Acquired absence of other specified parts of digestive tract; Z86.73 Personal history of transient ischemic attack (TIA), and cerebral infarction without residual deficits; Z95.820 Peripheral vascular angioplasty status with implants and grafts
CPT/HCPCS: 99283

== ENCOUNTER 2020-10-25 11:44 | Emergency (ER) | payer MEDICAID ==
[~2020-10-25] VITALS: Ht 182.9 cm; Wt 60.0 kg
[2020-10-25 11:54] VITALS: BP 158/79
--- NOTE | 2020-10-25 11:57 | NUR ---
FOREST MANAGEMENT TEACHER: PT AT NURSING STATION, STATES, "I HATE THIS HOSPITAL I WANTED TO GO TO [place], YOU ALL TREAT ME LIKE SHIT". INCREASED EMOTIONAL SUPPORT GIVEN, PT WISHES TO LEAVE AMA, GAIT STEADY
== END 2020-10-25 11:59 | disposition left against medical advice (07) ==
LOC: ED 11:50
DX: R10.84 Generalized abdominal pain (principal); F17.200 Nicotine dependence, unspecified, uncomplicated; I11.0 Hypertensive heart disease with heart failure; I50.9 Heart failure, unspecified; I25.10 Atherosclerotic heart disease of native coronary artery without angina pectoris; J44.9 Chronic obstructive pulmonary disease, unspecified; Z90.49 Acquired absence of other specified parts of digestive tract; Z86.73 Personal history of transient ischemic attack (TIA), and cerebral infarction without residual deficits
CPT/HCPCS: 99283

== ENCOUNTER 2020-10-26 03:29 | Emergency (ER) | payer MEDICAID ==
[~2020-10-26] VITALS: Ht 170.2 cm; Wt 91.2 kg
[2020-10-26] MEDS ORDERED: ONDANSETRON ODT 4 MG ONE (03:49)
--- NOTE | 2020-10-26 03:53 | NUR ---
THIS IS A 55 YO F W/ C/O 9/10 EPIGASTRIC PAIN, N/V X3 DAYS. PT REPORTS WAS RECENTLY ADMITTED TO [facility] FOR SBO. RECORDS REQUESTED. PT ANXIOUS AND TEARFUL, REFUSING TO PUT ON GOWN UNTIL WE RECEIVE RECORDS. PT FEELS THAT WE DO NOT BELIEVE HER ABOUT HER PAIN. PT REASSURED WE ARE HERE TO HELP. COOPERATIVE W/ VS. PT MEDICATED PER EMAR. RESP EVEN AND UNLABORED, NADN.
[2020-10-26] MEDS ORDERED: KETOROLAC 30 MG/1 ML ONE (03:59)
[2020-10-26] MEDS ORDERED: ONDANSETRON ODT 4 MG PO ONE (04:00)
[2020-10-26] MEDS ORDERED: KETOROLAC 30 MG/1 ML IM ONE (04:00)
[2020-10-26 04:03] VITALS: BP 106/51
--- NOTE | 2020-10-26 04:12 | NUR ---
PT CONTINUES TO STATE "YOU ALL TREAT ME LIKE SHIT, WHY DOES IT MATTER WHAT I TELL YOU, YOURE JUST GOING TO TREAT MY LIKE SHIT". PT KEEPS REFERENCING PAST VISITS FOR ANXIETY STATING SHE WASN'T CARED FOR PROPERLY. PT REQUESTING ATIVAN STATES "I JUST REALLY WANT TO GET UP AND LEAVE RIGHT NOW, I MIGHT HAVE TO IF I DON'T GET SOMETHING TO CALM ME DOWN". PT REEDUCATED ON ED PROCESS, REASSURED AGAIN THAT THE STAFF HERE WANTS TO HELP.
[2020-10-26 04:15] LABS: BASOPHILS % (AUTO) 1 % (0-1); EOSINOPHILS % (AUTO) 2 % (1-7); LYMPHOCYTES % (AUTO) 27 % (22-44); MEAN CORPUSCULAR HGB CONC 33.7 g/dL (32.4-35.8); MEAN PLATELET VOLUME 7.7 fL (7.4-10.4); MONOCYTES % (AUTO) 9 % (2-9); NEUTROPHILS % (AUTO) 61 % (42-75); PLATELET COUNT 282 x10^3/uL (130-400); RED BLOOD COUNT 4.73 x10^6/uL (3.82-5.3); RED CELL DISTRIBUTION WIDTH 13.8 % (9.6-15.2)
[2020-10-26 04:16] LABS: MD NO
--- NOTE | 2020-10-26 04:21 | NUR ---
PT REFUSED HYDROXYZINE FOR ANXIETY. ERP UPDATED.
[2020-10-26 04:26] LABS: ALANINE AMINOTRANSFERASE 36 U/L (12-78); ALBUMIN 3.8 g/dL (3.4-5.0); ANION GAP 3 mmol/L (5-15); CALCIUM 9.2 mg/dL (8.5-10.1); CHLORIDE 108 mmol/L (98-107); CREATININE 0.78 mg/dL (0.55-1.02)
[2020-10-26 04:28] LABS: ALKALINE PHOSPHATASE 105 U/L (45-117); BILIRUBIN,TOTAL 0.3 mg/dL (0.2-1.0)
--- NOTE | 2020-10-26 04:37 | NUR ---
PT RESTING MUCH MORE COMFORTABLY AFTER MEDS. RESP EVEN AND UNLABORED, NADN.
--- NOTE | 2020-10-26 04:55 | NUR ---
PT REQUESTING PAIN MEDS. ERP UPDATED.
--- NOTE | 2020-10-26 05:24 | NUR ---
PT WALKED PAST ANOTHER PTS ROOM STATING "SHUT THE FUCK UP YOU DAMN ADDICT". PT WALKED OUT OF ROOM PRIOR TO MEDICATING. FOUND AT NURSES STATION STATING "YOU GUYS GIVE HEROIN ADDICTS MEDICATION BUT NOT ME! REAL SMART, WAY TO GO!". PT DECLINED ORDER BENTYL. PT PROVIDED DC INSTRUCTIONS BY ED SUP. AMBUALTORY W/ A STEADY GAIT, RESP EVEN AND UNLABORED, NADN.
[2020-10-26] MEDS ORDERED: DICYCLOMINE 20 MG TABLET PO ONE (05:30)
== END 2020-10-26 05:31 | disposition home or self-care (01) ==
LOC: ED 04:10
DX: R10.13 Epigastric pain (principal); R11.2 Nausea with vomiting, unspecified; I11.0 Hypertensive heart disease with heart failure; I25.2 Old myocardial infarction; I50.9 Heart failure, unspecified; J44.9 Chronic obstructive pulmonary disease, unspecified; Z86.718 Personal history of other venous thrombosis and embolism; Z90.49 Acquired absence of other specified parts of digestive tract
CPT/HCPCS: 36415; 74021; 80053; 83690; 85025; 96372; 99284; J1885; Q0162

== ENCOUNTER 2020-11-05 22:52 | Emergency (ER) | payer MEDICAID ==
[~2020-11-05] VITALS: Ht 170.2 cm; Wt 99.5 kg
[2020-11-05] MEDS ORDERED: BUSP10TA PO (23:25)
[2020-11-05] MEDS ORDERED: PARO10TA56 PO (23:25)
[2020-11-05] MEDS ORDERED: LORazepam 1MG TABLET ONE (23:27)
[2020-11-05] MEDS ORDERED: LORazepam 1MG TABLET PO ONE (23:30)
[2020-11-06] MEDS ORDERED: OXYMETAZOLINE NASAL SPRAY 0.05%, 15ML NAS ONE
[2020-11-06] MEDS ORDERED: OXYMETAZOLINE NASAL SPRAY 0.05%,30ML ONE (00:02)
[2020-11-06 00:13] VITALS: BP 137/76
== END 2020-11-06 00:16 | disposition home or self-care (01) ==
LOC: ED 23:34
DX: F41.1 Generalized anxiety disorder (principal); H65.02 Acute serous otitis media, left ear; T43.615A Adverse effect of caffeine, initial encounter; J44.9 Chronic obstructive pulmonary disease, unspecified; I11.0 Hypertensive heart disease with heart failure; I50.9 Heart failure, unspecified; I25.2 Old myocardial infarction; G89.29 Other chronic pain; F17.210 Nicotine dependence, cigarettes, uncomplicated; Z86.73 Personal history of transient ischemic attack (TIA), and cerebral infarction without residual deficits; Z86.718 Personal history of other venous thrombosis and embolism; Y92.89 Other specified places as the place of occurrence of the external cause
CPT/HCPCS: 93005; 99283; 99406

== ENCOUNTER 2020-11-07 07:51 | Emergency (ER) | payer MEDICAID ==
[~2020-11-07] VITALS: Ht 170.2 cm; Wt 91.0 kg
[~2020-11-07 07:51] MED LIST changes: +BUSP10TA PO; +PARO10TA56 PO
--- NOTE | 2020-11-07 08:03 | NUR ---
patient arrives with panic attack anxiety that began last night. vss. talking complete sentences. got in gown and in bed. states she had energy drink yesterday and that she was laid off from [employer] and c19 giving her anxiety
[2020-11-07] MEDS ORDERED: LORazepam 1MG TABLET ONE (08:18)
[2020-11-07 08:20] VITALS: BP 131/46
[2020-11-07] MEDS ORDERED: LORazepam 1MG TABLET PO ONE (08:30)
== END 2020-11-07 08:29 | disposition home or self-care (01) ==
LOC: ED 08:08
DX: F41.1 Generalized anxiety disorder (principal); I10 Essential (primary) hypertension; I25.2 Old myocardial infarction; J44.9 Chronic obstructive pulmonary disease, unspecified; M79.7 Fibromyalgia
CPT/HCPCS: 99283

== ENCOUNTER 2020-11-08 10:20 | Emergency (ER) | payer MEDICAID ==
[~2020-11-08] VITALS: Ht 170.2 cm; Wt 91.6 kg
[2020-11-08 10:22] VITALS: BP 94/69
--- NOTE | 2020-11-08 10:37 | NUR ---
"PANIC ATTACK. THE BUSPAR AND PAXIL HAVN'T KICKED IN YET." I RAN OUT OF ATIVAN PROVIDER TO BEDSIDE
[2020-11-08] MEDS ORDERED: LORazepam 1MG TABLET ONE (10:45)
[2020-11-08] MEDS ORDERED: LORazepam 1MG TABLET PO ONE (11:00)
--- NOTE | 2020-11-08 11:00 | NUR ---
medicated per emar
--- NOTE | 2020-11-08 11:30 | NUR ---
with reassessment- Patient noted to be calm. no longer tearful. Sitting on gurnery. States "yeah i feel much better." Welder Tech spent 10 minutes encouraging patient to seek therapy/ eat as good as she can. abstain from etoh/nicotine and do her best with sleep hygiene. As an alternative to bezodiazepines. Patient took info well
== END 2020-11-08 11:47 | disposition home or self-care (01) ==
LOC: ED 10:56
DX: F41.1 Generalized anxiety disorder (principal); R06.4 Hyperventilation; I11.0 Hypertensive heart disease with heart failure; I50.9 Heart failure, unspecified; I25.10 Atherosclerotic heart disease of native coronary artery without angina pectoris; J44.9 Chronic obstructive pulmonary disease, unspecified; M79.7 Fibromyalgia; F17.200 Nicotine dependence, unspecified, uncomplicated; Z90.49 Acquired absence of other specified parts of digestive tract; Z95.5 Presence of coronary angioplasty implant and graft; Z86.73 Personal history of transient ischemic attack (TIA), and cerebral infarction without residual deficits; Z86.718 Personal history of other venous thrombosis and embolism; Z88.6 Allergy status to analgesic agent; Z88.8 Allergy status to other drugs, medicaments and biological substances; Z91.013 Allergy to seafood
CPT/HCPCS: 99283

== ENCOUNTER 2020-11-09 03:33 | Emergency (ER) | payer MEDICAID ==
[~2020-11-09] VITALS: Ht 170.2 cm; Wt 92.3 kg
[2020-11-09 03:40] VITALS: BP 131/72
--- NOTE | 2020-11-09 03:40 | NUR ---
NIL X 1 WHEN CALLED FOR TRIAGE AT 0337; IN BATHROOM PER REGISTRATION.
--- NOTE | 2020-11-09 03:45 | NUR ---
IMMIGRATION OFFICER: EKG DONE IN TRIAGE.
--- NOTE | 2020-11-09 04:25 | NUR ---
PT. SHOUTING AT STAFF IN LOBBY. "I WANT TO GO BACK TO A ROOM! THIS IS BULLSHIT THAT I HAVE TO WAIT AND OTHER PEOPLE ARE GETTING ROOMS." PT. SHOUTING IN THIS RN FACE "WHY ARE OTHER PEOPLE GETTING ROOMS AND I AM NOT, I AM LEAVING!!" PT. AMBULATORY OUT OF ED WITH STEADY GAIT.
== END 2020-11-09 04:29 | disposition left against medical advice (07) ==
LOC: ED 04:00
DX: F41.0 Panic disorder [episodic paroxysmal anxiety] (principal); R94.31 Abnormal electrocardiogram [ECG] [EKG]; Z53.21 Procedure and treatment not carried out due to patient leaving prior to being seen by health care provider
CPT/HCPCS: 93005

== ENCOUNTER 2020-11-09 13:45 | Emergency (ER) | payer MEDICAID ==
[~2020-11-09] VITALS: Ht 170.2 cm; Wt 91.9 kg
[2020-11-09 13:49] VITALS: BP 143/54
[2020-11-09] MEDS ORDERED: LORazepam 1MG TABLET PO ONE (14:30)
[2020-11-09] MEDS ORDERED: LORazepam 1MG TABLET ONE (14:40)
--- NOTE | 2020-11-09 14:46 | NUR ---
TASK RN: TECH AT BEDSIDE OBTAINING EKG. MEDICATED NOTED ON MAR FOR ANXIETY
== END 2020-11-09 15:37 | disposition home or self-care (01) ==
LOC: ED 15:13
DX: F41.1 Generalized anxiety disorder (principal); J44.9 Chronic obstructive pulmonary disease, unspecified; I25.2 Old myocardial infarction; I11.0 Hypertensive heart disease with heart failure; I50.9 Heart failure, unspecified; I25.10 Atherosclerotic heart disease of native coronary artery without angina pectoris; F17.210 Nicotine dependence, cigarettes, uncomplicated; Z90.49 Acquired absence of other specified parts of digestive tract; Z86.73 Personal history of transient ischemic attack (TIA), and cerebral infarction without residual deficits
CPT/HCPCS: 93005; 99283

== ENCOUNTER 2020-11-11 05:55 | Emergency (ER) | payer MEDICAID ==
[~2020-11-11] VITALS: Ht 170.2 cm; Wt 93.4 kg
[2020-11-11 06:02] VITALS: BP 134/72
--- NOTE | 2020-11-11 06:22 | NUR ---
RN AND CUPOLA OPERATOR INSULATION ENTER ROOM AT SAME TIME TO ASSESS PATIENT. PATIENT STARTS PACING ROOM AND HYPERVENTILATING EXPLAINING HER REASON FOR COMING IN TO THE ER TODAY FOR ANXIETY/PANIC ATTACKS. PATIENT TEARFUL AT TIMES. CUPOLA OPERATOR INSULATION LEFT ROOM AND RN STAYED IN ROOM WITH PATIENT TO COMPLETE TRIAGE. PATIENT BECAME CALM AND SAT ON BED CROSS LEGGED AND STARTED COLORING IN HER NOTEBOOK. RN ASKED QUESTIONS AND PATIENT ANSWERED APPROPRIATELY WITHOUT BECOMING TEARFUL AND WITHOUT HYPREVENTILATING. PATIENT CALM, COOPERATIVE. WILL CONTINUE TO MONITOR
--- NOTE | 2020-11-11 06:25 | NUR ---
PATIENT SEEN WALKING OUT OF HER ROOM WITH HER JACKET ON AND HOLDING HER PURSE. I ASKED WHERE SHE WAS GOING AND PATIENT STATED SHE WAS "LEAVING BECAUSE THEY CANT GIVE ME ANYTHING ELSE BUT ATARAX SO IM GOING TO GO HOME AND DO MY BREATHING'. RN ASKED PATIENT CALMLY IF SHE COULD GO BACK TO HER ER ROOM AND WAIT FOR DC PAPERWORK TO BE DRAFTED AND PATIENT KEPT WALKING TOWARDS EXIT AND STATES "NO. I NEED TO GO HOME". PATIENT DECLINED TO FINISH REGISTRATION WELL AND STARTED PUSHING ON LOCKED DOOR TO LEAVE. STREET LIGHT SERVICER HELPER NOTIFIED OF THIS EVENT AND THAT PATIENT LEFT WITHOUT DC PAPERWORK
[2020-11-11] MEDS ORDERED: HYDR-2995 PO (06:31)
== END 2020-11-11 06:35 | disposition left against medical advice (07) ==
LOC: ED 06:20
DX: F41.1 Generalized anxiety disorder (principal); I10 Essential (primary) hypertension; F17.200 Nicotine dependence, unspecified, uncomplicated
CPT/HCPCS: 99281; 99283

== ENCOUNTER 2020-11-14 03:12 | Emergency (ER) | payer MEDICAID ==
[~2020-11-14] VITALS: Ht 170.2 cm; Wt 95.0 kg
[~2020-11-14 03:12] MED LIST changes: +HYDR-2995 PO
[2020-11-14 03:13] VITALS: BP 138/81
--- NOTE | 2020-11-14 03:23 | NUR ---
Pt walks to room 19 in NAD, RR equal and unlabored.
[2020-11-14] MEDS ORDERED: LORazepam 1MG TABLET ONE (03:30)
[2020-11-14] MEDS ORDERED: LORazepam 1MG TABLET PO ONE (04:00)
== END 2020-11-14 03:49 | disposition home or self-care (01) ==
LOC: ED 03:21
DX: F41.1 Generalized anxiety disorder (principal); J44.9 Chronic obstructive pulmonary disease, unspecified; I11.0 Hypertensive heart disease with heart failure; I50.9 Heart failure, unspecified; I25.2 Old myocardial infarction; I25.10 Atherosclerotic heart disease of native coronary artery without angina pectoris; F17.210 Nicotine dependence, cigarettes, uncomplicated; Z72.9 Problem related to lifestyle, unspecified; Z86.73 Personal history of transient ischemic attack (TIA), and cerebral infarction without residual deficits; Z90.49 Acquired absence of other specified parts of digestive tract; Z95.5 Presence of coronary angioplasty implant and graft; Z88.6 Allergy status to analgesic agent; Z88.8 Allergy status to other drugs, medicaments and biological substances
CPT/HCPCS: 99283; 99406

== ENCOUNTER 2020-11-14 20:56 | Emergency (ER) | payer MEDICAID ==
[~2020-11-14] VITALS: Ht 170.2 cm; Wt 91.6 kg
[2020-11-14] MEDS ORDERED: LORazepam 1MG TABLET ONE (21:27)
[2020-11-14] MEDS ORDERED: LORazepam 1MG TABLET PO ONE (21:30)
[2020-11-14] MEDS ORDERED: OLANZAPINE 10 MG TABLET PO SCH (21:30)
--- NOTE | 2020-11-14 21:34 | NUR ---
PT REFUSED ZYPREXA
[2020-11-14 22:12] VITALS: BP 139/88
== END 2020-11-14 22:14 | disposition home or self-care (01) ==
LOC: ED 22:03
DX: F41.1 Generalized anxiety disorder (principal); R06.4 Hyperventilation; I11.0 Hypertensive heart disease with heart failure; I50.9 Heart failure, unspecified; J44.9 Chronic obstructive pulmonary disease, unspecified; I25.2 Old myocardial infarction; M79.7 Fibromyalgia; F17.210 Nicotine dependence, cigarettes, uncomplicated; Z72.9 Problem related to lifestyle, unspecified; Z86.718 Personal history of other venous thrombosis and embolism; Z86.73 Personal history of transient ischemic attack (TIA), and cerebral infarction without residual deficits; Z90.49 Acquired absence of other specified parts of digestive tract; Z95.5 Presence of coronary angioplasty implant and graft
CPT/HCPCS: 99283; 99406

== ENCOUNTER 2020-11-20 14:06 | Emergency (ER) | payer MEDICAID ==
[~2020-11-20] VITALS: Ht 154.9 cm; Wt 91.1 kg
--- NOTE | 2020-11-20 14:20 | NUR ---
HEMATOLOGIST: EKG PERFORMED IN TRIAGE.
--- NOTE | 2020-11-20 14:53 | NUR ---
EQUITY RESEARCH ANALYST: PT TO ROOM FROM LOBBY
[2020-11-20] MEDS ORDERED: LORazepam 1MG TABLET PO ONE (16:00)
--- NOTE | 2020-11-20 16:12 | NUR ---
Pt journaling, ambulatory to bathroom with steady gait.
[2020-11-20] MEDS ORDERED: LORazepam 1MG TABLET ONE (16:14)
[2020-11-20 16:22] VITALS: BP 120/80
== END 2020-11-20 16:24 | disposition home or self-care (01) ==
LOC: ED 14:56
DX: R06.00 Dyspnea, unspecified (principal); F41.1 Generalized anxiety disorder; R07.9 Chest pain, unspecified; R94.31 Abnormal electrocardiogram [ECG] [EKG]; J44.9 Chronic obstructive pulmonary disease, unspecified; I25.10 Atherosclerotic heart disease of native coronary artery without angina pectoris; I11.0 Hypertensive heart disease with heart failure; I50.9 Heart failure, unspecified; I25.2 Old myocardial infarction; G89.29 Other chronic pain; Z87.11 Personal history of peptic ulcer disease; Z86.718 Personal history of other venous thrombosis and embolism; Z86.73 Personal history of transient ischemic attack (TIA), and cerebral infarction without residual deficits
CPT/HCPCS: 71045; 93005; 99283

== ENCOUNTER 2020-11-21 23:50 | Emergency (ER) | payer MEDICAID ==
[~2020-11-21] VITALS: Ht 170.2 cm; Wt 86.0 kg
[2020-11-22] MEDS ORDERED: MAALOX/HYOSCYAMINE/LIDOCAINE 45 ML BTL ONE (00:25)
[2020-11-22] MEDS ORDERED: LORazepam 1MG TABLET ONE (00:25)
[2020-11-22] MEDS ORDERED: MAALOX/HYOSCYAMINE/LIDOCAINE 45 ML BTL PO ONE (00:30)
[2020-11-22] MEDS ORDERED: LORazepam 1MG TABLET PO ONE (00:30)
[2020-11-22] MEDS ORDERED: ALUMINUM/MAG/SIMETHICONE 30 ML UDC ONE (00:35)
[2020-11-22] MEDS ORDERED: ALUMINUM/MAG/SIMETHICONE 30 ML UDC PO PRN (01:00)
[2020-11-22 01:01] LABS: BASOPHILS % (AUTO) 1 % (0-1); EOSINOPHILS % (AUTO) 2 % (1-7); LYMPHOCYTES % (AUTO) 31 % (22-44); MEAN CORPUSCULAR HEMOGLOBIN 29.9 pg (27.0-34.8); MEAN CORPUSCULAR HGB CONC 33.4 g/dL (32.4-35.8); MEAN PLATELET VOLUME 7.8 fL (7.4-10.4); MONOCYTES % (AUTO) 8 % (2-9); NEUTROPHILS % (AUTO) 59 % (42-75); PLATELET COUNT 272 x10^3/uL (130-400); RED BLOOD COUNT 4.76 x10^6/uL (3.82-5.3); RED CELL DISTRIBUTION WIDTH 13.7 % (9.6-15.2)
--- NOTE | 2020-11-22 01:03 | NUR ---
PT REFUSED GI COCKTAIL. PT SAID THAT "ANYTHING THAT NUMBS HER THROAT WILL MAKE HER MORE ANXOUS"
[2020-11-22 01:05] LABS: MD NO
[2020-11-22 01:06] LABS: ALBUMIN 3.8 g/dL (3.4-5.0); ANION GAP 3 mmol/L (5-15); CALCIUM 9.5 mg/dL (8.5-10.1); CHLORIDE 107 mmol/L (98-107)
[2020-11-22 01:11] LABS: ALANINE AMINOTRANSFERASE 22 U/L (12-78); ALKALINE PHOSPHATASE 99 U/L (45-117); BILIRUBIN,TOTAL 0.3 mg/dL (0.2-1.0); CREATININE 0.91 mg/dL (0.55-1.02); TOTAL PROTEIN 7.6 g/dL (6.4-8.2)
--- NOTE | 2020-11-22 01:45 | NUR ---
PT IN NO DISTRESS AND RESTING IN BED WITH NORMAL RESPERATIONS. WHEN PT WAS TOLD SHE WAS BEING DISCHARGED PT BECAME UPSET AND DEMANDED MORE ATIVAN. PT ASKED TO TALK TO HER DR. RN EXPLAINED TO HER THAT DR VARGAS HAS LEFT FOR THE DAY. RN OFFER PT COULD TALK TO ANOTHER PROVIDER, PT DENIED. PT COMPLAINED THAT SHE NEVER GOT ALL HER LAB RESULTS READ TO HER, RN OFFERED TO GO OVER THEM OR SUPPLY HER WITH A PRINT OUT AND PT REFUSED. PT KEPT BRINGING UP A THOUGHT THAT "SHE WAS GETTING BLACK LISTED FROM ATIVAN AND THAT STAFF TOLD HER THAT" RN NEVER TOLD HER THAT AND RN IS NOT SURE WHERE SHE CAME UP WITH "BLACKLISTED" RN ASK IF PT NEEDS A CAB, PT THEN STARTED YELLING ABOUT "GETTING SECURITY AND THAT RN SAID SHE DID NOT WANT TO LEAVE" PT THEN STARTED TO GET CHANGED AND SAID HER WAS OUT IN CAR AND THEY WILL FILE A COMPLAINT ABOUT NOT GETTING A ATIVAN RX" RN WATCHED PT WALK TO DISCHARGE DESK WITHOUT DIFFICULTY.
[2020-11-22 01:55] VITALS: BP 144/92
== END 2020-11-22 01:57 | disposition home or self-care (01) ==
LOC: ED 11-22 00:03
DX: F41.0 Panic disorder [episodic paroxysmal anxiety] (principal); R10.9 Unspecified abdominal pain; R11.0 Nausea; M79.606 Pain in leg, unspecified; I11.0 Hypertensive heart disease with heart failure; I50.9 Heart failure, unspecified; J44.9 Chronic obstructive pulmonary disease, unspecified; M79.7 Fibromyalgia; Z86.718 Personal history of other venous thrombosis and embolism; Z86.73 Personal history of transient ischemic attack (TIA), and cerebral infarction without residual deficits; Z90.49 Acquired absence of other specified parts of digestive tract; Z95.5 Presence of coronary angioplasty implant and graft
CPT/HCPCS: 36415; 80053; 83690; 85025; 99283

== ENCOUNTER 2020-11-22 23:22 | Emergency (ER) | payer MEDICAID ==
[~2020-11-22] VITALS: Ht 162.6 cm; Wt 92.0 kg
[2020-11-22 23:28] VITALS: BP 147/65
--- NOTE | 2020-11-22 23:52 | NUR ---
RN HAD PT LAST NIGHT AND PT DID NOT LIKE BEING DISCHARGED WITHOUT A RX FOR ATIVAN AND YELLED AT RN LAST NIGHT. LOKESH PT SAW THAT I WAS HER RN AND PT THOUGHT WE WHERE TALKING ABOUT HER DOWN THE MI. PT CAME OUT OF ROOM YELLING IN THE MI ABOUT "ATIVAN AND HOW WE DID NOT GIVE HER A 2ND DOSE LAST NIGHT, PT ALSO YELLING "THAT RN WAS WATCHING PORN IN HER ROOM LAST NIGHT AND TRIED TO STEAL HER ATIVAN" SECURITY CALLED, PT GIVEN OPTION TO GO BACK TO HER ROOM OR LEAVE, PT WENT BACK TO HER ROOM WITH SECURITY FOLLOWING.
--- NOTE | 2020-11-23 00:25 | NUR ---
TASK RN: TOOK PT D/C SUMMARY, AND PT STARTED YELLING AND STATING THAT HER RN TREATED HER BADLY AND THAT SHE WAS LEAVING. PT STATES THAT WE ARE "JUST SITTING AROUND WATCHING PORNO VIDEOS WHEN WE SHOULD BE HELPING POOR PEOPLE LIKE ME". PT EDUCATED ON ER TREATMENT AND INABILITY OF ERP TO REFILL A RECENTLY FILLED CONTROLLED SUBSTANCE SCRIPT WHICH PT STATES "IT'S NOT MY FAULT IT WAS STOLEN OUT OF MY CAR". PT WALKS TO REGISTRATION DESK WITH STEADY GAIT WHILE CURSING AT STAFF. MARGOTH, APPRENTICE COOK, NOTIFIED OF PT BEHAVIOR.
--- NOTE | 2020-11-23 00:26 | NUR ---
RN STAYED AWAY FROM PT WHO WAS FIXATED ON BLAMING RN FOR NOT GETTING A RX OF ATIVAN YESTERDAY AND TONIGHT. PT WAS DISCHARGED BY MELISSA LUI. PT YELLING LOUD IN MI THROUGH OUT DISCHARGE ABOUT "FILLING OUT A POLICE REPORT AND HOW SHE WILL FILE A COMPLAINT ABOUT NOT GETTING WHAT SHE WANTS AT THE ER AND PROVIDER DID NOT DO ANYTHING FOR HER AND IT IS THE RN'S FAULT". PT HAS HX OF BEING REMOVED BY SECURITY FOR OUTBURST AND REFUSING TO LEAVE FOR "NOT BEING HAPPY WITH HER CARE"
== END 2020-11-23 00:31 | disposition home or self-care (01) ==
LOC: ED 23:42
DX: F41.1 Generalized anxiety disorder (principal); R06.02 Shortness of breath; Z72.9 Problem related to lifestyle, unspecified; J44.9 Chronic obstructive pulmonary disease, unspecified; I25.10 Atherosclerotic heart disease of native coronary artery without angina pectoris; I11.0 Hypertensive heart disease with heart failure; I50.9 Heart failure, unspecified; I25.2 Old myocardial infarction; Z87.11 Personal history of peptic ulcer disease; Z90.49 Acquired absence of other specified parts of digestive tract; Z86.718 Personal history of other venous thrombosis and embolism
CPT/HCPCS: 99281

== ENCOUNTER 2020-11-24 06:59 | Emergency (ER) | payer MEDICAID ==
[~2020-11-24] VITALS: Ht 170.2 cm; Wt 91.9 kg
[2020-11-24 07:04] VITALS: BP 141/96
[2020-11-24] MEDS ORDERED: hydrOXYzine 50 MG/ML IM PRN (07:30)
== END 2020-11-24 07:56 ==
LOC: ED 07:19
DX: F41.1 Generalized anxiety disorder (principal); R06.02 Shortness of breath; I11.0 Hypertensive heart disease with heart failure; I50.9 Heart failure, unspecified; J44.9 Chronic obstructive pulmonary disease, unspecified
CPT/HCPCS: 99281

== ENCOUNTER 2020-11-29 23:25 | Emergency (ER) | payer MEDICAID ==
[~2020-11-29] VITALS: Ht 170.2 cm; Wt 90.0 kg
--- NOTE | 2020-11-29 23:45 | NUR ---
Pt arrived to room 26, assumed care. Pt coughing up phlem, restless, reporting she hurts everywhere. EKG done, hooked up to monitor, satting 93% RA. Provided pt warm blankets. Provider at bedside.
[2020-11-29] MEDS ORDERED: ALBUTEROL/IPRATROPIUM 2.5MG/0.5MG, 3 ML ONE (23:54)
[2020-11-29] MEDS ORDERED: KETOROLAC 30 MG/1 ML ONE (23:54)
[2020-11-29] MEDS ORDERED: ONDANSETRON ODT 4 MG ONE (23:54)
[2020-11-30] MEDS ORDERED: KETOROLAC 30 MG/1 ML IM ONE
[2020-11-30] MEDS ORDERED: ALBUTEROL/IPRATROPIUM 2.5MG/0.5MG, 3 ML NPPB ONE
[2020-11-30] MEDS ORDERED: ONDANSETRON ODT 4 MG PO ONE
[2020-11-30 00:02] LABS: BASOPHILS % (AUTO) 1 % (0-1); EOSINOPHILS % (AUTO) 1 % (1-7); LYMPHOCYTES % (AUTO) 37 % (22-44); MEAN CORPUSCULAR HGB CONC 33.5 g/dL (32.4-35.8); MEAN PLATELET VOLUME 7.2 fL (7.4-10.4); MONOCYTES % (AUTO) 8 % (2-9); NEUTROPHILS % (AUTO) 54 % (42-75); PLATELET COUNT 318 x10^3/uL (130-400); RED BLOOD COUNT 4.52 x10^6/uL (3.82-5.3); RED CELL DISTRIBUTION WIDTH 13.8 % (9.6-15.2)
--- NOTE | 2020-11-30 00:02 | NUR ---
medicated per eMAR
[2020-11-30 00:03] LABS: MD NO
[2020-11-30 00:13] LABS: ALANINE AMINOTRANSFERASE 25 U/L (12-78); ALBUMIN 3.7 g/dL (3.4-5.0); ANION GAP 7 mmol/L (5-15); CALCIUM 8.9 mg/dL (8.5-10.1); CHLORIDE 105 mmol/L (98-107); CREATININE 0.77 mg/dL (0.55-1.02)
[2020-11-30 00:18] LABS: ALKALINE PHOSPHATASE 86 U/L (45-117); BILIRUBIN,TOTAL 0.3 mg/dL (0.2-1.0); TROPONIN I < 0.015 ng/mL (0.000-0.045)
--- NOTE | 2020-11-30 00:30 | NUR ---
Pt requesting pain meds. Informing provider.
[2020-11-30 00:43] VITALS: BP 131/71
--- NOTE | 2020-11-30 00:47 | NUR ---
Pt on 2L nasal cannula when sleeping, sats 94%. Pt reports she normally wears 2L oxygen at night when sleeping at home.
--- NOTE | 2020-11-30 00:49 | NUR ---
Tyelnol ordered for pain for pt- pt refused. Informed provider.
[2020-11-30] MEDS ORDERED: ACETAMINOPHEN 500 MG TABLET PO ONE (01:00)
== END 2020-11-30 02:21 | disposition home or self-care (01) ==
LOC: ED 23:40
DX: J18.9 Pneumonia, unspecified organism (principal); R06.00 Dyspnea, unspecified; R06.02 Shortness of breath; R07.89 Other chest pain; R10.13 Epigastric pain; R05 Cough; M79.10 Myalgia, unspecified site; I50.9 Heart failure, unspecified; I11.0 Hypertensive heart disease with heart failure; I25.10 Atherosclerotic heart disease of native coronary artery without angina pectoris; I25.2 Old myocardial infarction; R94.31 Abnormal electrocardiogram [ECG] [EKG]; F17.210 Nicotine dependence, cigarettes, uncomplicated; Z72.9 Problem related to lifestyle, unspecified; Z86.73 Personal history of transient ischemic attack (TIA), and cerebral infarction without residual deficits; Z90.49 Acquired absence of other specified parts of digestive tract; Z86.718 Personal history of other venous thrombosis and embolism
CPT/HCPCS: 36415; 71045; 80053; 83690; 83880; 84484; 85025; 93005; 94640; 96372; 99285; 99406; J1885; J7512; Q0162

== ENCOUNTER 2020-12-03 22:51 | Emergency (ER) | payer MEDICAID ==
[~2020-12-03] VITALS: Ht 170.2 cm; Wt 91.4 kg
--- NOTE | 2020-12-03 23:04 | NUR ---
pt is a well known female to this er with a c/o headache and muscle pain. reports a cough sarted 2 days prior and that she was tested for covid but the results were negative. pt is a smoker. resting on gurney, bed in lowest, call light on lap, rails engaged, nad, appears comfortable. pt placed on spo2/bp monitoring. tm.
[2020-12-03] MEDS ORDERED: KETOROLAC 60 MG/2 ML ONE (23:24)
[2020-12-03] MEDS ORDERED: ALBUTEROL/IPRATROPIUM 2.5MG/0.5MG, 3 ML ONE (23:24)
[2020-12-03] MEDS ORDERED: KETOROLAC 60 MG/2 ML IM ONE (23:30)
[2020-12-03] MEDS ORDERED: ALBUTEROL/IPRATROPIUM 2.5MG/0.5MG, 3 ML NPPB ONE (23:30)
--- NOTE | 2020-12-03 23:45 | NUR ---
late entry d/t pt care: pt medicated per mar, nad, denies additional questions or needs at this time. bed in lowest, rails engaged, call light on lap. wctm.
[2020-12-04 00:30] VITALS: BP 138/64
--- NOTE | 2020-12-04 00:58 | NUR ---
RN to bs for DC. Pt became aggitated upon RN entering the room. pt began shouting at RN "what the fuck are you guys doing here? The alejandro on the other side of this call button thinks its a joke and is making fun of me, he keeps shutting it off and not helping me at all." "well this time i recorded it every fucking time, so i am going to get hi". pt also stating "my neb spilt out and I didnt get any". RN checked linens and there was nothing damp or moist in bed or on pt from a spilt neb and treatment canister was sealed. pt became increasingly aggitated stating "you know what, i just need to speak to the doctor." RN informed ERP who stated pt is clear to dc at this time and has already been prescribed the medications she needs. pt nad, no personal belongings left in room after dc. smooth and steady gait upon dc
== END 2020-12-04 01:06 | disposition home or self-care (01) ==
LOC: ED 23:07
DX: J98.01 Acute bronchospasm (principal); M79.10 Myalgia, unspecified site; R05 Cough; R51.9 Headache, unspecified; I25.10 Atherosclerotic heart disease of native coronary artery without angina pectoris; J44.9 Chronic obstructive pulmonary disease, unspecified; I25.2 Old myocardial infarction; I11.0 Hypertensive heart disease with heart failure; I50.9 Heart failure, unspecified; F17.200 Nicotine dependence, unspecified, uncomplicated; Z86.73 Personal history of transient ischemic attack (TIA), and cerebral infarction without residual deficits; Z90.49 Acquired absence of other specified parts of digestive tract; Z86.718 Personal history of other venous thrombosis and embolism
CPT/HCPCS: 94640; 96372; 99283; J1885

== ENCOUNTER 2020-12-09 05:36 | Emergency (ER) | payer MEDICAID ==
[~2020-12-09] VITALS: Ht 170.2 cm; Wt 94.8 kg
[2020-12-09 05:37] VITALS: BP 117/60
[2020-12-09] MEDS ORDERED: ONDANSETRON ODT 4 MG PO ONE (06:00)
[2020-12-09] MEDS ORDERED: KETOROLAC 30 MG/1 ML IM ONE (06:00)
--- NOTE | 2020-12-09 06:11 | NUR ---
Pt to ER after having abd pain x 2 days. Pt states that pain became worse this am, feeling like a squeezing band around her upper abd. Pt states having nausea, no vomiting. Pt A&O, appropriate. Pt on monitor. Will monitor.
[2020-12-09] MEDS ORDERED: KETOROLAC 30 MG/1 ML ONE (06:15)
[2020-12-09] MEDS ORDERED: ONDANSETRON ODT 4 MG ONE (06:15)
--- NOTE | 2020-12-09 06:25 | NUR ---
Pt medicated per order. Pt back from CT. On monitor. Will monitor.
--- NOTE | 2020-12-09 07:16 | NUR ---
NGT placed. Report called to Mariel upstairs. Waiting on xray. Report to Ranjana LUI in ER>
--- NOTE | 2020-12-09 07:27 | NUR ---
PT AMBULATED TO D/C W/STEADY GAIT. PT ENCOURAGED TO FOLLOWUP DISCUSSED. PT EDUCATED TO RETURN TO THE ED W/WORSENING SYMPTOMS.
== END 2020-12-09 07:31 | disposition home or self-care (01) ==
LOC: ED 06:11
DX: K59.00 Constipation, unspecified (principal); R10.10 Upper abdominal pain, unspecified; R11.2 Nausea with vomiting, unspecified; J44.9 Chronic obstructive pulmonary disease, unspecified; I25.10 Atherosclerotic heart disease of native coronary artery without angina pectoris; I11.0 Hypertensive heart disease with heart failure; I50.9 Heart failure, unspecified; I25.2 Old myocardial infarction; M79.7 Fibromyalgia; F17.210 Nicotine dependence, cigarettes, uncomplicated; Z90.49 Acquired absence of other specified parts of digestive tract; Z95.820 Peripheral vascular angioplasty status with implants and grafts
CPT/HCPCS: 74021; 99283

== ENCOUNTER 2020-12-19 12:23 | Emergency (ER) | payer MEDICAID ==
[~2020-12-19] VITALS: Ht 170.2 cm; Wt 89.2 kg
[2020-12-19 12:36] VITALS: BP 107/74
[2020-12-19] MEDS ORDERED: LORazepam 1MG TABLET ONE (12:59)
[2020-12-19] MEDS ORDERED: LORazepam 1MG TABLET PO ONE (13:00)
--- NOTE | 2020-12-19 13:02 | NUR ---
FIRST CONTACT W/ PT. PT CHANGED IN CLOTHES FROM GOWN, TOOK OF VS MONITORING. PT MEDICATED PER EMAR. RESTING ON GURNEY W/ CALL LIGHT IN REACH AND SIDE RAIL UPX2. RESP EVEN AND UNLABORED, [place].
--- NOTE | 2020-12-19 13:19 | NUR ---
Patient given discharge instructions and they have confirmed that they understand the instructions. Patient ambulatory with steady gait.
== END 2020-12-19 13:20 | disposition home or self-care (01) ==
LOC: ED 13:14
DX: F41.1 Generalized anxiety disorder (principal); R06.4 Hyperventilation
CPT/HCPCS: 99283

== ENCOUNTER 2020-12-21 10:20 | Emergency (ER) | payer MEDICAID ==
[~2020-12-21] VITALS: Ht 170.2 cm; Wt 89.4 kg
[2020-12-21 10:25] VITALS: BP 154/62
--- NOTE | 2020-12-21 11:07 | NUR ---
PT TO ROOM FROM LOBBY, REFUSED TO CHANGE INTO GOWN, WALKING/STANDING AROUND IN ROOM, NO NEEDS AT [facility], CALL LIGHT WITHIN REACH.
[2020-12-21] MEDS ORDERED: LORazepam 1MG TABLET ONE (11:44)
--- NOTE | 2020-12-21 12:01 | NUR ---
Patient given discharge instructions and they have confirmed that they understand the instructions. Patient ambulatory with steady gait.
[2020-12-21] MEDS ORDERED: LORazepam 1MG TABLET PO ONE (12:30)
== END 2020-12-21 12:06 | disposition home or self-care (01) ==
LOC: ED 11:18
DX: F41.1 Generalized anxiety disorder (principal); R50.9 Fever, unspecified; J44.9 Chronic obstructive pulmonary disease, unspecified; I11.0 Hypertensive heart disease with heart failure; I50.9 Heart failure, unspecified; I25.2 Old myocardial infarction; F17.200 Nicotine dependence, unspecified, uncomplicated; Z88.9 Allergy status to unspecified drugs, medicaments and biological substances; Z90.49 Acquired absence of other specified parts of digestive tract
CPT/HCPCS: 99283

== ENCOUNTER 2020-12-22 02:22 | Emergency (ER) | payer MEDICAID ==
[~2020-12-22] VITALS: Ht 170.2 cm; Wt 91.5 kg
--- NOTE | 2020-12-22 02:44 | NUR ---
PT CAME INTO ED TONIGHT FOR CP, REPORTS IT STARTED ABOUT AN HOUR AGO AND RADIATES INTO JAW AND LEFT ARM. PT STATES IT IS 10/10, PULSES 2+ RADIALLY. PT WHEELED BACK TO ROOM, RESTING ON GURNEY, PLACED ON SPO2/BP/ECH MONITORING AT THIS TIME. BED IN LOWEST, CALL LIGHT ON LAP, RAILS ENGAGED, PROVIDED WARM BLANKETS FOR COMFORT, WCTM.
[2020-12-22] MEDS ORDERED: NITROGLYCERIN OINT 2%, 1GM TP ONE ×2 (02:54→03:24)
[2020-12-22] MEDS ORDERED: ASPIRIN 81 MG TABLET CHEW ONE (02:54)
[2020-12-22] MEDS ORDERED: ASPIRIN 81 MG TABLET CHEW PO ONE (03:00)
[2020-12-22] MEDS: NITROGLYCERIN OINT 2%, 1GM TP ONE ×2 (03:00→03:44)
[2020-12-22 03:04] LABS: BASOPHILS % (AUTO) 1 % (0-1); EOSINOPHILS % (AUTO) 0 % (1-7); LYMPHOCYTES % (AUTO) 15 % (22-44); MEAN CORPUSCULAR HEMOGLOBIN 30.2 pg (27.0-34.8); MEAN CORPUSCULAR HGB CONC 33.4 g/dL (32.4-35.8); MEAN PLATELET VOLUME 7.3 fL (7.4-10.4); MONOCYTES % (AUTO) 5 % (2-9); NEUTROPHILS % (AUTO) 79 % (42-75); PLATELET COUNT 292 x10^3/uL (130-400); RED BLOOD COUNT 4.67 x10^6/uL (3.82-5.3); RED CELL DISTRIBUTION WIDTH 14.2 % (9.6-15.2)
[2020-12-22 03:07] LABS: MD NO
[2020-12-22 03:12] LABS: ALANINE AMINOTRANSFERASE 25 U/L (12-78); ALBUMIN 3.8 g/dL (3.4-5.0); ANION GAP 6 mmol/L (5-15); CALCIUM 8.8 mg/dL (8.5-10.1); CHLORIDE 104 mmol/L (98-107)
[2020-12-22 03:16] LABS: ALKALINE PHOSPHATASE 77 U/L (45-117); BILIRUBIN,TOTAL 0.4 mg/dL (0.2-1.0); TOTAL PROTEIN 7.1 g/dL (6.4-8.2); TROPONIN I < 0.015 ng/mL (0.000-0.045)
[2020-12-22 03:57] VITALS: BP 125/55
--- NOTE | 2020-12-22 04:01 | NUR ---
MED NOT YET ADMINISTERED DUE TO NEEDING IV ESTABLISHED PRIOR TO ADMIN. PT SITTING UP IN [facility], [facility], BED IN [facility], ANOTHER RN ATTEMPTING TO ESTABLISH LINE AT THIS TIME. WCTM.
--- NOTE | 2020-12-22 04:09 | NUR ---
DISCUSSED WITH ERP, UNABLE TO ESTABLISH LINE, ORDERED TO HOLD NITRO DUE TO INABILITY TO ESTABLISH LINE. PT RESTING ON GURNEY, RAILS ENGAGED, CALL LIGHT ON LAP, WCTM.
--- NOTE | 2020-12-22 04:23 | NUR ---
pt states "well im just going to leave cause this is ridiculous" rn brought pt ama paperwork and she refused to sign at this time. yelling at rn "this is ridiculous, you need to give me the nitro"
--- NOTE | 2020-12-22 04:29 | NUR ---
pt left ama, erp aware, pt informed of risks of leave prior to completing testing.
== END 2020-12-22 04:28 | disposition left against medical advice (07) ==
LOC: ED 04:10
DX: R07.2 Precordial pain (principal); I11.0 Hypertensive heart disease with heart failure; I50.9 Heart failure, unspecified; F41.9 Anxiety disorder, unspecified; I25.2 Old myocardial infarction; J44.9 Chronic obstructive pulmonary disease, unspecified; I44.4 Left anterior fascicular block; F17.210 Nicotine dependence, cigarettes, uncomplicated; Z72.9 Problem related to lifestyle, unspecified; Z90.49 Acquired absence of other specified parts of digestive tract; Z86.73 Personal history of transient ischemic attack (TIA), and cerebral infarction without residual deficits; Z86.718 Personal history of other venous thrombosis and embolism
CPT/HCPCS: 36415; 71045; 80053; 84484; 85025; 93005; 99285; 99406

== ENCOUNTER 2020-12-31 12:07 | Emergency (ER) | payer MEDICAID ==
[2020-12-31 12:11] VITALS: BP 146/63
[2020-12-31] MEDS ORDERED: LORazepam 1MG TABLET PO ONE (13:30)
[2020-12-31] MEDS ORDERED: LORazepam 1MG TABLET ONE (13:54)
== END 2020-12-31 14:49 | disposition home or self-care (01) ==
LOC: ED 12:23
DX: F41.1 Generalized anxiety disorder (principal); I11.0 Hypertensive heart disease with heart failure; I50.9 Heart failure, unspecified; I25.2 Old myocardial infarction; I25.10 Atherosclerotic heart disease of native coronary artery without angina pectoris; J44.9 Chronic obstructive pulmonary disease, unspecified
CPT/HCPCS: 99283

== ENCOUNTER 2021-01-02 12:39 | Emergency (ER) | payer MEDICAID ==
[~2021-01-02] VITALS: Ht 170.2 cm; Wt 90.2 kg
[2021-01-02 12:43] VITALS: BP 125/83
--- NOTE | 2021-01-02 13:25 | NUR ---
PT TO ROOM FROM LOBBY AT [facility] TIME
[2021-01-02] MEDS ORDERED: LORazepam 1MG TABLET ONE (13:58)
[2021-01-02] MEDS ORDERED: LORazepam 1MG TABLET PO ONE (14:00)
--- NOTE | 2021-01-02 14:33 | NUR ---
Break RN- Discharge instructions reviewed
--- NOTE | 2021-01-02 14:33 | NUR ---
PLATE EMBOSSER TO DC
== END 2021-01-02 14:36 | disposition home or self-care (01) ==
LOC: ED 13:29
DX: F41.0 Panic disorder [episodic paroxysmal anxiety] (principal); F41.9 Anxiety disorder, unspecified; I11.0 Hypertensive heart disease with heart failure; I50.9 Heart failure, unspecified; I25.10 Atherosclerotic heart disease of native coronary artery without angina pectoris; J44.9 Chronic obstructive pulmonary disease, unspecified; I25.2 Old myocardial infarction; Z86.73 Personal history of transient ischemic attack (TIA), and cerebral infarction without residual deficits; Z86.718 Personal history of other venous thrombosis and embolism; Z90.49 Acquired absence of other specified parts of digestive tract
CPT/HCPCS: 99283

== ENCOUNTER 2021-01-03 04:56 | Emergency (ER) | payer MEDICAID ==
[~2021-01-03] VITALS: Ht 170.2 cm; Wt 91.3 kg
[2021-01-03 05:03] VITALS: BP 123/91
--- NOTE | 2021-01-03 05:35 | NUR ---
PT DISCHARGED PER PROVIDER. PT APOLOGIZED TO RN FOR HER FALSE PAST COMPLAINTS. PT BEHAVIOR APPEARS HOT AND COLD WITH PT ACTING LIKE SHE WAS CRYING WHEN RN ENTERED THE ROOM AND THEN INSTATLY STOPED FAKE CRYING AND WAS TALKING ABOUT HOW "SHE USED TO [employer] AND HER KNOWS NICKY SANDERS" PT AMBULATED WITHOUT DIFFICULTY TO DISCHARGE DESKWITH PT DISCHARGE PAPERWORK IN HAND.
== END 2021-01-03 05:39 | disposition home or self-care (01) ==
LOC: ED 05:19
DX: Z00.00 Encounter for general adult medical examination without abnormal findings (principal); Z76.5 Malingerer [conscious simulation]; I11.0 Hypertensive heart disease with heart failure; I50.9 Heart failure, unspecified; I25.2 Old myocardial infarction; I25.10 Atherosclerotic heart disease of native coronary artery without angina pectoris; J44.9 Chronic obstructive pulmonary disease, unspecified; Z86.73 Personal history of transient ischemic attack (TIA), and cerebral infarction without residual deficits; F32.9 Major depressive disorder, single episode, unspecified
CPT/HCPCS: 99281

== ENCOUNTER 2021-01-06 01:20 | Emergency (ER) | payer MEDICAID ==
[~2021-01-06] VITALS: Ht 170.2 cm; Wt 89.8 kg
[2021-01-06 01:26] VITALS: BP 155/51
== END 2021-01-06 02:14 | disposition home or self-care (01) ==
LOC: ED 01:52
DX: F41.1 Generalized anxiety disorder (principal); J44.9 Chronic obstructive pulmonary disease, unspecified; I25.2 Old myocardial infarction; Z72.9 Problem related to lifestyle, unspecified; Z76.0 Encounter for issue of repeat prescription
CPT/HCPCS: 99281

== ENCOUNTER 2021-01-07 15:04 | Emergency (ER) | payer MEDICAID ==
[~2021-01-07] VITALS: Ht 170.2 cm; Wt 88.0 kg
[2021-01-07 15:09] VITALS: BP 174/84
[2021-01-07] MEDS ORDERED: LORazepam 1MG TABLET PO ONE (16:00)
[2021-01-07] MEDS ORDERED: LORazepam 1MG TABLET ONE (16:01)
--- NOTE | 2021-01-07 16:03 | NUR ---
STATION COOK PER MAR.
--- NOTE | 2021-01-07 16:46 | NUR ---
PT APPEARS CALMER. PT STATES SHE FEELS LESS ANXIOUS. PT STATES SHE IS WALKING BACK TO [employer] WHERE SHE WORKS.
== END 2021-01-07 16:48 | disposition home or self-care (01) ==
LOC: ED 15:38
DX: F41.1 Generalized anxiety disorder (principal); I25.2 Old myocardial infarction; I11.0 Hypertensive heart disease with heart failure; I50.9 Heart failure, unspecified; J44.9 Chronic obstructive pulmonary disease, unspecified; I25.10 Atherosclerotic heart disease of native coronary artery without angina pectoris; Z86.73 Personal history of transient ischemic attack (TIA), and cerebral infarction without residual deficits; Z86.718 Personal history of other venous thrombosis and embolism
CPT/HCPCS: 99283

== ENCOUNTER 2021-01-09 02:23 | Emergency (ER) | payer MEDICAID ==
[~2021-01-09] VITALS: Ht 170.2 cm; Wt 85.0 kg
[2021-01-09 02:25] VITALS: BP 138/89
--- NOTE | 2021-01-09 02:35 | NUR ---
Pt seen and evaluated in triage by JIMENEZ Tom. Pt was counciled again about the need for her to obtain proper tx from a therapist and to obtain her medications from her son. Pt keeps apologizing for being here in ER. DC instruct given to pt, pt verbalizes understanding of instruct and f/u. Pt able to safely navigate the community and its resources.
== END 2021-01-09 03:09 | disposition home or self-care (01) ==
LOC: ED 02:44
DX: F41.1 Generalized anxiety disorder (principal); Z72.9 Problem related to lifestyle, unspecified
CPT/HCPCS: 99281

== ENCOUNTER 2021-01-09 10:33 | Emergency (ER) | payer MEDICAID ==
[~2021-01-09] VITALS: Ht 170.2 cm; Wt 86.2 kg
--- NOTE | 2021-01-09 10:48 | NUR ---
TRAINING AND DEVELOPMENT REP: PT YELLING HELP ME, I CAN'T BREATHE" PT ANSWERING QUESTIONS APPROPRIATELY. CONVERSING W/O DIFFICULTY. PT PACING AROUND ROOM. PT PLACED IN TRIAGE 2 FOR OBS UNTIL ED ROOM BECOMES AVAILABLE.
--- NOTE | 2021-01-09 11:00 | NUR ---
AIRCRAFT MECHANIC ARMAMENT: PT CONTINUES TO YELL IN ROOM. NO RESP DISTRESS NOTED.
--- NOTE | 2021-01-09 11:09 | NUR ---
PT DELAYING ESOPHOGRAM. STATING SHE'S SCARED TO GO. AFTER 10 MINUTES OF EDUCATION PT AGREEABLE FOR EXAM.
--- NOTE | 2021-01-09 11:29 | NUR ---
PT RETURNED TO LOBBY AFTER ESOPHOGRAM. PT SITTING ON WHEELCHAIR ON PHONE. RESP EVEN AND UNLABORED, [place].
--- NOTE | 2021-01-09 11:37 | NUR ---
PRIVATE CHEF: PT [id number]. SEEN WALKING DOWN STREET W/ A STEADY GAIT. [place].
--- NOTE | 2021-01-09 11:44 | NUR ---
AIR DRILL OPERATOR: [id number]
--- NOTE | 2021-01-09 11:57 | NUR ---
CIVIL ENGINEERING INTERN: [id number]
== END 2021-01-09 11:58 | disposition left against medical advice (07) ==
LOC: ED 11:08
DX: R05 Cough (principal)
CPT/HCPCS: 74220; 99283

== ENCOUNTER 2021-01-16 22:10 | Emergency (ER) | payer MEDICAID ==
[~2021-01-16] VITALS: Ht 170.2 cm; Wt 85.5 kg
[2021-01-16 22:14] VITALS: BP 142/79
[2021-01-17] MEDS ORDERED: ACETAMINOPHEN 325 MG TABLET ONE
[2021-01-17] MEDS ORDERED: ACETAMINOPHEN 325 MG TABLET PO ONE
== END 2021-01-17 00:18 | disposition home or self-care (01) ==
LOC: ED 23:03
DX: J30.2 Other seasonal allergic rhinitis (principal); J32.0 Chronic maxillary sinusitis; Z76.0 Encounter for issue of repeat prescription; F17.210 Nicotine dependence, cigarettes, uncomplicated; J44.9 Chronic obstructive pulmonary disease, unspecified; I25.10 Atherosclerotic heart disease of native coronary artery without angina pectoris; I11.0 Hypertensive heart disease with heart failure; I50.9 Heart failure, unspecified; G89.29 Other chronic pain; I25.2 Old myocardial infarction; Z87.11 Personal history of peptic ulcer disease; Z90.89 Acquired absence of other organs; Z86.73 Personal history of transient ischemic attack (TIA), and cerebral infarction without residual deficits; Z86.39 Personal history of other endocrine, nutritional and metabolic disease; Z98.61 Coronary angioplasty status
CPT/HCPCS: 99283; 99406; J7512

== ENCOUNTER 2021-01-31 20:22 | Emergency (ER) | payer MEDICAID ==
[~2021-01-31] VITALS: Ht 157.5 cm; Wt 85.2 kg
[2021-01-31 20:31] VITALS: BP 119/84
--- NOTE | 2021-01-31 20:45 | NUR ---
SAME TRIAGE NOTE. PT C/O PAIN/PRESSURE FROM SINUS INFECTION. STATES SHE USUALLY TAKES PREDNISONE FOR THEM.
--- NOTE | 2021-01-31 20:49 | NUR ---
ERP AT BS.
--- NOTE | 2021-01-31 21:01 | NUR ---
REPORTED TO EFRA LUI.
--- NOTE | 2021-01-31 21:33 | NUR ---
Report from douglas llamas Medicated per emar for ent inflammation "I get this all the time and prednisone fixes me up."
== END 2021-01-31 21:38 | disposition home or self-care (01) ==
LOC: ED 20:39
DX: J02.8 Acute pharyngitis due to other specified organisms (principal); B97.89 Other viral agents as the cause of diseases classified elsewhere; I11.0 Hypertensive heart disease with heart failure; I50.9 Heart failure, unspecified; I25.10 Atherosclerotic heart disease of native coronary artery without angina pectoris; Z86.73 Personal history of transient ischemic attack (TIA), and cerebral infarction without residual deficits
CPT/HCPCS: 99283; J7512

== ENCOUNTER 2021-02-08 08:29 | Emergency (ER) | payer MEDICAID ==
[~2021-02-08] VITALS: Ht 170.2 cm; Wt 86.3 kg
[2021-02-08 08:44] VITALS: BP 139/76
--- NOTE | 2021-02-08 09:08 | NUR ---
PT C/O SINUS PRESSURE, THROAT PRESSURE, SINUS DRAINAGE AND REQUESTING STEROID
== END 2021-02-08 09:20 | disposition home or self-care (01) ==
LOC: ED 09:15
DX: H66.001 Acute suppurative otitis media without spontaneous rupture of ear drum, right ear (principal); J44.9 Chronic obstructive pulmonary disease, unspecified; I25.10 Atherosclerotic heart disease of native coronary artery without angina pectoris; I11.0 Hypertensive heart disease with heart failure; I50.9 Heart failure, unspecified; I25.2 Old myocardial infarction; Z86.73 Personal history of transient ischemic attack (TIA), and cerebral infarction without residual deficits
CPT/HCPCS: 99283

== ENCOUNTER 2021-02-26 02:42 | Emergency (ER) | payer MEDICAID ==
[~2021-02-26] VITALS: Ht 170.2 cm; Wt 85.7 kg
[2021-02-26 02:49] VITALS: BP 130/49
== END 2021-02-26 04:19 | disposition left against medical advice (07) ==
LOC: ED 03:30
DX: R09.81 Nasal congestion (principal); Z53.21 Procedure and treatment not carried out due to patient leaving prior to being seen by health care provider

== ENCOUNTER 2021-02-26 06:55 | Emergency (ER) | payer MEDICAID ==
[~2021-02-26] VITALS: Ht 170.2 cm; Wt 85.2 kg
[2021-02-26 07:12] VITALS: BP 166/113
--- NOTE | 2021-02-26 07:13 | NUR ---
COMPLIANCE NURSE: PT TO DOOR, "I NEED TO GO BACK IMMEDIATELY, I AM HAVING A PANICK ATTACK". EXPLAINED THAT PT NEEDS TO BE TRIAGE FIRST, PT BECAME VERBALLY ABUSIVE TO THIS RN. INCREASED EMOTIONAL SUPPORT GIVEN. PT YELLING AT THIS NURSE.
--- NOTE | 2021-02-26 08:13 | NUR ---
PT OUT TO PHYSICIAN DESK, YELLING AT PHYSICIAN AND OTHER STAFF. DR VRAGAS SPOKE WITH PT AND ATTEMPTED TO DEFUSE SITUATION. PT WENT BACK INTO ROOM AND THEN RETURNED TO DESK, YELLING AND VERBALLY ABUSIVE AND THREATENING TO STAFF AGAIN. PT ASKED FOR AMA FORM WHICH WAS PROVIDED TO HER. PT REFUSED TO SIGN. SECURITY CALLED AND PT ESCORTED OUT OF ER.
== END 2021-02-26 08:18 | disposition left against medical advice (07) ==
LOC: ED 08:13
DX: R09.81 Nasal congestion (principal); Z53.21 Procedure and treatment not carried out due to patient leaving prior to being seen by health care provider
CPT/HCPCS: 99281